=== PATIENT | male | born 1935 | race Caucasian/White ===

== ENCOUNTER 2021-09-20 23:23 | Inpatient (IN) | payer OTHER ==
[~2021-09-20] VITALS: Ht 175.3 cm; Wt 111.2 kg
[2021-09-21] MEDS ORDERED: VANCOMYCIN 1GM/250ML 250 ML IV ONE (00:15)
[2021-09-21] MEDS ORDERED: SODIUM CHLORIDE 0.9% 500 ML IV ONE (00:15)
[2021-09-21] MEDS ORDERED: PIPERACILLIN-TAZO 4.5GM 100 ML IV ONE (00:15)
[2021-09-21] MEDS ORDERED: ACETAMINOPHEN 500 MG TAB PO ONE (00:15)
[2021-09-21] MEDS ORDERED: VANCOMYCIN 1GM/250ML 500 ML IV ONE (00:16)
[2021-09-21 00:45] LABS: Basophils # (auto) 0.1 10 ^3/uL (0-0.2); Basophils % (auto) 1.5 % (0.0-2.0); Eosinophils # (auto) 0 10 ^3/uL (0-0.8); Eosinophils % (auto) 0.1 % (0.0-7.0); Hematocrit 58.6 % (41.0-53.0); Hemoglobin 19.1 g/dL (13.5-17.5); Lymphocytes # (auto) 1.4 10 ^3/uL (0.4-5.4); Lymphocytes % (auto) 17.1 % (10.0-50.0); Mean Corpuscular Hemoglobin 30.4 pg (28.0-32.0); Mean Corpuscular Hgb Conc. 32.7 g/dL (32.0-36.0); Monocytes % (auto) 13.1 % (0.0-12.0); Neutrophils # (auto) 5.4 10 ^3/uL (1.6-8.6); Neutrophils % (auto) 68.2 % (37.0-80.0); Nucleated Red Blood Cells % 0.1 %; Red Cell Distribution Width 14.9 % (11.8-14.3)
[2021-09-21 00:48] LABS: INR 1.79 (0.9-1.15)
[2021-09-21 00:51] LABS: Albumin 2.3 g/dL (3.4-5.0); BUN/Creatinine Ratio 22.2; Calcium 7.7 mg/dL (8.5-10.1); Magnesium 2.6 mg/dL (1.6-2.6); Potassium 4.4 mmol/L (3.5-5.1)
[2021-09-21 00:53] LABS: Bilirubin, Total 1.2 mg/dL (0.2-1.0); Lactic Acid w/Reflex 3.8 mmol/L (0.4-2.0); Total Protein 6.7 g/dL (6.4-8.2)
[2021-09-21] MEDS ORDERED: DexAMETHasone SOD PHOS 10MG/1ML VIAL INJ IV ONE (01:45)
[2021-09-21] MEDS ORDERED: NOREPINEPHRINE 8 MG/250ML KIT 250 ML IV SCH (01:45)
[2021-09-21] MEDS ORDERED: DOCUSATE SOD 100 MG CAP PO PRN (05:15)
[2021-09-21] MEDS ORDERED: dilTIAZem 25 MG/5 ML VIAL IV ONE (05:15)
[2021-09-21] MEDS ORDERED: ACETAMINOPHEN 325 MG TAB PO PRN (05:15)
[2021-09-21] MEDS ORDERED: HYDROcodone-ACET 5/325MG TAB PO PRN (05:15)
[2021-09-21] MEDS ORDERED: MORPHINE SULFATE INJECTION 2 MG/ML SYRG IV PRN (05:45)
[2021-09-21] MEDS: ALBUMIN 25% 50 ML IV SCH ×3 (05:56→21:53)
[2021-09-21] MEDS: SODIUM CHLOR 0.9% PF (SALINE LOCK) 10ML VIAL/SYR IV SCH ×3 (06:13→22:07)
[2021-09-21] MEDS: BUDESONIDE (INHALATION) 180 MCG IH IN SCH ×2 (07:20→19:18)
[2021-09-21] MEDS: cefTRIAXone 1GM/50ML D5W 50 ML IV SCH (09:00)
[2021-09-21 09:06] LABS: Magnesium 3.5 mg/dL (1.6-2.6)
[2021-09-21] MEDS: ALBUTEROL SULF HFA 90MCG INH 200DOSE IN PRN ×2 (09:29→19:18)
[2021-09-21] MEDS: MULTIPLE VITAMIN TAB PO SCH (10:05)
[2021-09-21] MEDS: FAMOTIDINE (10MG/ML) 2ML VL IV SCH (10:05)
[2021-09-21] MEDS: DexAMETHasone SOD PHOS 10MG/1ML VIAL INJ IV SCH (10:05)
[2021-09-21] MEDS: ZINC SULFATE 220mg CAP or TAB PO SCH (10:05)
[2021-09-21] MEDS: ASCORBIC ACID 500 MG TAB PO SCH ×2 (10:05→22:00)
[2021-09-21] MEDS: ASPirin 81 mg TAB PO SCH (10:05)
[2021-09-21] MEDS: CHOLECALCIFEROL (VITD3) 2,000 UNIT CAP/TAB PO SCH (10:06)
[2021-09-21] MEDS: HEPARIN SODIUM (PORCINE) 5000 UNITS/ML 1ML VIAL SC SCH ×2 (10:07→22:19)
[2021-09-21] MEDS: AZITHROMYCIN 500MG/ 250ML 250 ML IV SCH (10:57)
[2021-09-21] MEDS ORDERED: REMDESIVIR PER PHARMACY 0 ML IV SCH (11:45)
[2021-09-21] MEDS ORDERED: REMDESIVIR IV ONE (15:00)
[2021-09-21] MEDS ORDERED: SODIUM CHL 0.9% IV ONE (15:00)
[2021-09-21 19:37] VITALS: BP 116/60
[2021-09-21] MEDS ORDERED: DEXTROSE (50%) 50ML SYRG IV PRN (21:45)
[2021-09-21 22:00] VITALS: BP 106/68
[2021-09-22] MEDS ORDERED: CHOL20007 PO (00:17)
[2021-09-22] MEDS ORDERED: DIGO0.12 PO (00:17)
[2021-09-22] MEDS ORDERED: WARF1TAB36 PO (00:17)
[2021-09-22] MEDS ORDERED: BISO5TAB44 PO (00:17)
[2021-09-22] MEDS ORDERED: ATOR40TA52 PO (00:17)
[2021-09-22] MEDS ORDERED: ALEN70TA74 PO (00:17)
[2021-09-22] MEDS ORDERED: FURO40TA4 PO (00:17)
[2021-09-22 05:00] VITALS: BP 106/58
[2021-09-22] MEDS: ACCU-CHEK COMFORT CURVE STRIP VI SCH ×4 (05:48→16:55)
[2021-09-22] MEDS: SODIUM CHLOR 0.9% PF (SALINE LOCK) 10ML VIAL/SYR IV SCH ×3 (05:49→22:29)
[2021-09-22] MEDS: InsuLIN REG 1unit/0.01ml Soln (100units/ml) SC SCH ×3 (05:49→16:55)
[2021-09-22] MEDS: BUDESONIDE (INHALATION) 180 MCG IH IN SCH ×2 (06:00→21:03)
[2021-09-22] MEDS: ALBUTEROL SULF HFA 90MCG INH 200DOSE IN PRN ×2 (06:08→21:03)
[2021-09-22 06:54] LABS: Basophils # (auto) 0 10 ^3/uL (0-0.2); Eosinophils # (auto) 0 10 ^3/uL (0-0.8); Hemoglobin 18.2 g/dL (13.5-17.5)
[2021-09-22 06:59] LABS: Lymphocytes # (auto) 0.3 10 ^3/uL (0.4-5.4); Lymphocytes % (auto) 1.8 % (10.0-50.0); Mean Corpuscular Hemoglobin 29.6 pg (28.0-32.0); Mean Corpuscular Volume 92.4 fL (80.0-100.0); Monocytes # (auto) 1.3 10 ^3/uL (0-1.3); Monocytes % (auto) 9.1 % (0.0-12.0); Neutrophils # (auto) 12.4 10 ^3/uL (1.6-8.6); Neutrophils % (auto) 89.1 % (37.0-80.0); Nucleated Red Blood Cells % 0.1 %; Red Blood Cells 6.14 10^6/uL (4.5-5.90); Red Cell Distribution Width 14.8 % (11.8-14.3); White Blood Cell 13.9 10^3/uL (4.4-10.8)
[2021-09-22 07:00] LABS: INR 2.2 (0.9-1.15)
[2021-09-22 07:04] LABS: Potassium 4.7 mmol/L (3.5-5.1)
[2021-09-22 07:11] LABS: Hematocrit 56.8 % (41.0-53.0)
[2021-09-22 07:18] LABS: Albumin 2.8 g/dL (3.4-5.0); BUN/Creatinine Ratio 20.8; Bilirubin, Total 0.7 mg/dL (0.2-1.0); CRP High Sensitivity 6.67 mg/dL (< 0.3); Calcium 8.3 mg/dL (8.5-10.1); Magnesium 2.7 mg/dL (1.6-2.6); Total Protein 6.9 g/dL (6.4-8.2)
[2021-09-22 08:00] VITALS: BP_SYST 126; BP_SYST 141; BP_DIAS 79; BP_DIAS 88
[2021-09-22] MEDS: cefTRIAXone 1GM/50ML D5W 50 ML IV SCH (09:17)
[2021-09-22] MEDS: FAMOTIDINE (10MG/ML) 2ML VL IV SCH (09:18)
[2021-09-22] MEDS: ZINC SULFATE 220mg CAP or TAB PO SCH (09:18)
[2021-09-22] MEDS: DexAMETHasone SOD PHOS 10MG/1ML VIAL INJ IV SCH (09:18)
[2021-09-22] MEDS: ASPirin 81 mg TAB PO SCH (09:18)
[2021-09-22] MEDS: MULTIPLE VITAMIN TAB PO SCH (09:18)
[2021-09-22] MEDS: ASCORBIC ACID 500 MG TAB PO SCH ×2 (09:19→22:28)
[2021-09-22] MEDS: CHOLECALCIFEROL (VITD3) 2,000 UNIT CAP/TAB PO SCH (09:19)
[2021-09-22] MEDS: HEPARIN SODIUM (PORCINE) 5000 UNITS/ML 1ML VIAL SC SCH (09:20)
[2021-09-22] MEDS: AZITHROMYCIN 500MG/ 250ML 250 ML IV SCH (10:00)
[2021-09-22 12:00] VITALS: BP 115/74
[2021-09-22] MEDS ORDERED: FUROSEMIDE 20 MG/2 ML VIAL IV ONE (12:45)
[2021-09-22 12:48] LABS: Urine Amorphous Crystal FEW /hpf (None Seen); Urine Bacteria FEW /hpf (None Seen); Urine Blood 3+ /uL (Negative); Urine Mucus FEW (None Seen); Urine Specific Gravity 1.021 (1.001-1.035); Urine WBC 81 /hpf (0 - 3)
[2021-09-22 12:55] LABS: Creatinine, Urine 103 mg/dL (30.0-125.0); Sodium Urine 18 mmol/L (40-220)
[2021-09-22 13:16] LABS: Protein, Urine 232.9 mg/dL (0.0-11.9)
[2021-09-22] MEDS: SOD CHL 0.45% 1,000 ML IV SCH (13:46)
[2021-09-22] MEDS: DOXYCYCLINE 100MG/250ML 250 ML IV SCH (14:02)
[2021-09-22] MEDS ORDERED: REMDESIVIR IV SCH (15:00)
[2021-09-22] MEDS ORDERED: SODIUM CHL 0.9% IV SCH (15:00)
[2021-09-22 16:00] VITALS: BP 129/76
[2021-09-22] MEDS: REMDESIVIR 100mg 100 MG in SODIUM CHL 0.9% 230 ML IV SCH (16:00)
[2021-09-22] MEDS ORDERED: WARFARIN SODIUM 2.5 MG TAB PO ONE (19:00)
[2021-09-22] MEDS ORDERED: DIGOXIN 0.125 MG TAB PO ONE (21:30)
[2021-09-22 22:00] VITALS: BP 112/71
[2021-09-23] MEDS: DOXYCYCLINE 100MG/250ML 250 ML IV SCH ×2 (02:00→14:07)
[2021-09-23 05:00] VITALS: BP 105/66
[2021-09-23] MEDS: ACCU-CHEK COMFORT CURVE STRIP VI SCH ×5 (05:37→23:51)
[2021-09-23] MEDS: SOD CHL 0.45% 1,000 ML IV SCH ×3 (05:38→18:26)
[2021-09-23 05:39] LABS: Basophils # (auto) 0 10 ^3/uL (0-0.2); Basophils % (auto) 0.3 % (0.0-2.0); Eosinophils # (auto) 0 10 ^3/uL (0-0.8); Hematocrit 53.8 % (41.0-53.0); Lymphocytes # (auto) 0.2 10 ^3/uL (0.4-5.4); Lymphocytes % (auto) 1.6 % (10.0-50.0); Mean Corpuscular Hemoglobin 30.6 pg (28.0-32.0); Mean Corpuscular Hgb Conc. 33.5 g/dL (32.0-36.0); Mean Corpuscular Volume 91.3 fL (80.0-100.0); Monocytes % (auto) 7.4 % (0.0-12.0); Neutrophils # (auto) 12.4 10 ^3/uL (1.6-8.6); Neutrophils % (auto) 90.7 % (37.0-80.0); Red Blood Cells 5.89 10^6/uL (4.5-5.90); White Blood Cell 13.7 10^3/uL (4.4-10.8)
[2021-09-23] MEDS: ALBUTEROL SULF HFA 90MCG INH 200DOSE IN PRN ×2 (05:42→19:00)
[2021-09-23] MEDS: BUDESONIDE (INHALATION) 180 MCG IH IN SCH ×2 (05:42→19:00)
[2021-09-23] MEDS: SODIUM CHLOR 0.9% PF (SALINE LOCK) 10ML VIAL/SYR IV SCH ×3 (05:43→22:31)
[2021-09-23] MEDS: InsuLIN REG 1unit/0.01ml Soln (100units/ml) SC SCH ×5 (05:50→23:56)
[2021-09-23 05:55] LABS: Albumin 2.6 g/dL (3.4-5.0); Potassium 4.3 mmol/L (3.5-5.1)
[2021-09-23 05:58] LABS: INR 2.26 (0.9-1.15); Lactic Acid w/Reflex 2.3 mmol/L (0.4-2.0); Partial Thromboplastin Time 36.4 sec (23.6-33.0)
[2021-09-23 06:03] LABS: BUN/Creatinine Ratio 23.9; Bilirubin, Total 0.8 mg/dL (0.2-1.0); CRP High Sensitivity 8.98 mg/dL (< 0.3); Total Protein 6.4 g/dL (6.4-8.2)
[2021-09-23 08:00] VITALS: BP 115/74
[2021-09-23 08:59] VITALS: BP 100/54
[2021-09-23] MEDS: FAMOTIDINE (10MG/ML) 2ML VL IV SCH (09:20)
[2021-09-23] MEDS: DexAMETHasone SOD PHOS 10MG/1ML VIAL INJ IV SCH (09:20)
[2021-09-23] MEDS: ASPirin 81 mg TAB PO SCH (09:20)
[2021-09-23] MEDS: CHOLECALCIFEROL (VITD3) 2,000 UNIT CAP/TAB PO SCH (09:21)
[2021-09-23] MEDS: ZINC SULFATE 220mg CAP or TAB PO SCH (09:21)
[2021-09-23] MEDS: ASCORBIC ACID 500 MG TAB PO SCH ×2 (09:21→22:33)
[2021-09-23] MEDS: DIGOXIN 0.125 MG TAB PO SCH (09:21)
[2021-09-23] MEDS: MULTIPLE VITAMIN TAB PO SCH (09:21)
[2021-09-23] MEDS ORDERED: AMIODARONE 450mg/250ml AE 250 ML IV SCH (12:45)
[2021-09-23] MEDS ORDERED: AMIODARONE HCL 150 MG in D5W 5% 100 ML IV ONE (12:45)
[2021-09-23 13:00] VITALS: BP 108/65
[2021-09-23] MEDS: REMDESIVIR 100mg 100 MG in SODIUM CHL 0.9% 230 ML IV SCH (16:02)
[2021-09-23 17:00] VITALS: BP 117/77
[2021-09-23] MEDS: AMIODARONE 450mg/250ml AE 250 ML IV SCH (21:51)
[2021-09-23 22:00] VITALS: BP 122/77
[2021-09-24] MEDS: DOXYCYCLINE 100MG/250ML 250 ML IV SCH ×2 (02:15→14:02)
[2021-09-24] MEDS: SOD CHL 0.45% 1,000 ML IV SCH ×2 (04:00→15:22)
[2021-09-24 05:00] VITALS: BP 124/85
[2021-09-24] MEDS: InsuLIN REG 1unit/0.01ml Soln (100units/ml) SC SCH ×4 (06:00→23:25)
[2021-09-24 06:22] LABS: Basophils # (auto) 0.1 10 ^3/uL (0-0.2); Eosinophils # (auto) 0 10 ^3/uL (0-0.8); Lymphocytes # (auto) 0.2 10 ^3/uL (0.4-5.4)
[2021-09-24 06:26] LABS: Basophils % (auto) 0.3 % (0.0-2.0); Hematocrit 55.9 % (41.0-53.0); Hemoglobin 18.4 g/dL (13.5-17.5); Lymphocytes % (auto) 1.1 % (10.0-50.0); Mean Corpuscular Hemoglobin 30.3 pg (28.0-32.0); Mean Corpuscular Hgb Conc. 32.9 g/dL (32.0-36.0); Mean Corpuscular Volume 92.1 fL (80.0-100.0); Neutrophils % (auto) 92.6 % (37.0-80.0); Red Blood Cells 6.08 10^6/uL (4.5-5.90); White Blood Cell 16.2 10^3/uL (4.4-10.8)
[2021-09-24 06:33] LABS: INR 3.5 (0.9-1.15)
[2021-09-24] MEDS: ACCU-CHEK COMFORT CURVE STRIP VI SCH ×4 (06:43→23:23)
[2021-09-24] MEDS: SODIUM CHLOR 0.9% PF (SALINE LOCK) 10ML VIAL/SYR IV SCH ×3 (06:44→21:37)
[2021-09-24 06:45] LABS: Albumin 2.7 g/dL (3.4-5.0); Calcium 8.4 mg/dL (8.5-10.1); Magnesium 3.6 mg/dL (1.6-2.6); Potassium 4.3 mmol/L (3.5-5.1)
[2021-09-24 06:50] LABS: BUN/Creatinine Ratio 24.2; Bilirubin, Total 1.2 mg/dL (0.2-1.0); Total Protein 6.8 g/dL (6.4-8.2)
[2021-09-24] MEDS: BUDESONIDE (INHALATION) 180 MCG IH IN SCH ×2 (08:13→19:46)
[2021-09-24] MEDS: ALBUTEROL SULF HFA 90MCG INH 200DOSE IN PRN ×2 (08:13→19:46)
[2021-09-24] MEDS: ASPirin 81 mg TAB PO SCH (09:02)
[2021-09-24] MEDS: FAMOTIDINE (10MG/ML) 2ML VL IV SCH (09:02)
[2021-09-24] MEDS: DexAMETHasone SOD PHOS 10MG/1ML VIAL INJ IV SCH (09:02)
[2021-09-24] MEDS: ZINC SULFATE 220mg CAP or TAB PO SCH (09:03)
[2021-09-24] MEDS: DIGOXIN 0.125 MG TAB PO SCH (09:03)
[2021-09-24] MEDS: MULTIPLE VITAMIN TAB PO SCH (09:03)
[2021-09-24] MEDS: CHOLECALCIFEROL (VITD3) 2,000 UNIT CAP/TAB PO SCH (09:04)
[2021-09-24] MEDS: ASCORBIC ACID 500 MG TAB PO SCH ×2 (09:04→21:37)
[2021-09-24] MEDS: LORazepam 0.5 MG TAB PO PRN ×2 (09:05→23:23)
[2021-09-24] MEDS: AMIODARONE 450mg/250ml AE 250 ML IV SCH (11:56)
[2021-09-24 13:00] VITALS: BP 112/68
[2021-09-24] MEDS ORDERED: AMIODARONE HCL 200 MG TAB PO ONE (14:30)
[2021-09-24] MEDS ORDERED: FUROSEMIDE 20 MG/2 ML VIAL IV ONE (14:30)
[2021-09-24] MEDS: REMDESIVIR 100mg 100 MG in SODIUM CHL 0.9% 230 ML IV SCH (15:22)
[2021-09-24 16:58] VITALS: BP 116/81
[2021-09-24] MEDS: Ensure HIGH Protein Chocolate 8oz Bottle PO SCH (18:00)
[2021-09-24] MEDS: AMIODARONE HCL 200 MG TAB PO SCH (21:38)
[2021-09-24 22:00] VITALS: BP 114/67
[2021-09-25] MEDS: DOXYCYCLINE 100MG/250ML 250 ML IV SCH ×2 (02:12→14:26)
[2021-09-25 05:00] VITALS: BP 109/77
[2021-09-25] MEDS: SODIUM CHLOR 0.9% PF (SALINE LOCK) 10ML VIAL/SYR IV SCH ×3 (05:19→22:26)
[2021-09-25] MEDS: ACCU-CHEK COMFORT CURVE STRIP VI SCH ×3 (05:19→17:24)
[2021-09-25] MEDS: InsuLIN REG 1unit/0.01ml Soln (100units/ml) SC SCH ×3 (05:21→17:32)
[2021-09-25] MEDS: BUDESONIDE (INHALATION) 180 MCG IH IN SCH ×2 (07:33→21:54)
[2021-09-25] MEDS: ALBUTEROL SULF HFA 90MCG INH 200DOSE IN PRN ×2 (07:33→21:54)
[2021-09-25] MEDS: Ensure HIGH Protein Chocolate 8oz Bottle PO SCH ×3 (08:00→17:24)
[2021-09-25 08:41] VITALS: BP 125/76
[2021-09-25] MEDS: ZINC SULFATE 220mg CAP or TAB PO SCH (10:09)
[2021-09-25] MEDS: DexAMETHasone SOD PHOS 10MG/1ML VIAL INJ IV SCH (10:09)
[2021-09-25] MEDS: FAMOTIDINE (10MG/ML) 2ML VL IV SCH (10:09)
[2021-09-25] MEDS: ASPirin 81 mg TAB PO SCH (10:09)
[2021-09-25] MEDS: FUROSEMIDE 20 MG/2 ML VIAL IV SCH (10:09)
[2021-09-25] MEDS: AMIODARONE HCL 200 MG TAB PO SCH ×2 (10:10→22:25)
[2021-09-25] MEDS: MULTIPLE VITAMIN TAB PO SCH (10:10)
[2021-09-25] MEDS: ASCORBIC ACID 500 MG TAB PO SCH ×2 (10:10→22:26)
[2021-09-25] MEDS: DIGOXIN 0.125 MG TAB PO SCH (10:10)
[2021-09-25] MEDS: CHOLECALCIFEROL (VITD3) 2,000 UNIT CAP/TAB PO SCH (10:11)
[2021-09-25 11:07] LABS: Potassium 4.7 mmol/L (3.5-5.1)
[2021-09-25 11:08] LABS: Eosinophils # (auto) 0 10 ^3/uL (0-0.8); Lymphocytes # (auto) 0.2 10 ^3/uL (0.4-5.4); Mean Corpuscular Volume 91.2 fL (80.0-100.0); Monocytes # (auto) 0.9 10 ^3/uL (0-1.3)
[2021-09-25 11:11] LABS: Basophils # (auto) 0.2 10 ^3/uL (0-0.2); Basophils % (auto) 1.1 % (0.0-2.0); Hematocrit 53.6 % (41.0-53.0); Hemoglobin 17.7 g/dL (13.5-17.5); Lymphocytes % (auto) 1.3 % (10.0-50.0); Mean Corpuscular Hemoglobin 30.2 pg (28.0-32.0); Mean Corpuscular Hgb Conc. 33.1 g/dL (32.0-36.0); Monocytes % (auto) 5.6 % (0.0-12.0); Neutrophils # (auto) 14.8 10 ^3/uL (1.6-8.6); Nucleated Red Blood Cells % 0.1 %; Red Blood Cells 5.87 10^6/uL (4.5-5.90); Red Cell Distribution Width 15.1 % (11.8-14.3); White Blood Cell 16.1 10^3/uL (4.4-10.8)
[2021-09-25 11:20] LABS: Albumin 2.3 g/dL (3.4-5.0); BUN/Creatinine Ratio 31.2; Bilirubin, Total 1.4 mg/dL (0.2-1.0); CRP High Sensitivity 5.19 mg/dL (< 0.3); Calcium 8.3 mg/dL (8.5-10.1); Magnesium 3.3 mg/dL (1.6-2.6); Total Protein 6.2 g/dL (6.4-8.2)
[2021-09-25 11:40] LABS: INR 3.98 (0.9-1.15)
[2021-09-25] MEDS: SOD CHL 0.45% 1,000 ML IV SCH (11:54)
[2021-09-25 13:00] VITALS: BP 128/87
[2021-09-25] MEDS: DOPamine 1600MCG/ML D5W 250 ML IV SCH (14:05)
[2021-09-25] MEDS: REMDESIVIR 100mg 100 MG in SODIUM CHL 0.9% 230 ML IV SCH (14:26)
[2021-09-25 17:20] VITALS: BP 115/85
[2021-09-25 22:17] VITALS: BP 114/85
[2021-09-26] MEDS: InsuLIN REG 1unit/0.01ml Soln (100units/ml) SC SCH ×4 (00:49→17:32)
[2021-09-26] MEDS: ACCU-CHEK COMFORT CURVE STRIP VI SCH ×4 (00:50→17:32)
[2021-09-26] MEDS: DOXYCYCLINE 100MG/250ML 250 ML IV SCH ×2 (02:36→13:13)
[2021-09-26 05:00] VITALS: BP 120/64
[2021-09-26] MEDS: SOD CHL 0.45% 1,000 ML IV SCH (05:04)
[2021-09-26] MEDS: SODIUM CHLOR 0.9% PF (SALINE LOCK) 10ML VIAL/SYR IV SCH ×3 (06:07→22:35)
[2021-09-26] MEDS: BUDESONIDE (INHALATION) 180 MCG IH IN SCH ×2 (06:56→21:52)
[2021-09-26] MEDS: ALBUTEROL SULF HFA 90MCG INH 200DOSE IN PRN ×2 (06:56→22:51)
[2021-09-26] MEDS: Ensure HIGH Protein Chocolate 8oz Bottle PO SCH ×3 (08:00→18:00)
[2021-09-26 09:00] VITALS: BP 108/62
[2021-09-26] MEDS: DexAMETHasone SOD PHOS 10MG/1ML VIAL INJ IV SCH (09:08)
[2021-09-26] MEDS: ASPirin 81 mg TAB PO SCH (09:09)
[2021-09-26] MEDS: FUROSEMIDE 20 MG/2 ML VIAL IV SCH (09:09)
[2021-09-26] MEDS: FAMOTIDINE (10MG/ML) 2ML VL IV SCH (09:09)
[2021-09-26] MEDS: ZINC SULFATE 220mg CAP or TAB PO SCH (09:09)
[2021-09-26] MEDS: ASCORBIC ACID 500 MG TAB PO SCH ×2 (09:10→22:34)
[2021-09-26] MEDS: MULTIPLE VITAMIN TAB PO SCH (09:10)
[2021-09-26] MEDS: AMIODARONE HCL 200 MG TAB PO SCH ×2 (09:10→22:34)
[2021-09-26] MEDS: CHOLECALCIFEROL (VITD3) 2,000 UNIT CAP/TAB PO SCH (09:10)
[2021-09-26] MEDS: DIGOXIN 0.125 MG TAB PO SCH (09:12)
[2021-09-26 10:10] LABS: Potassium 4.8 mmol/L (3.5-5.1)
[2021-09-26 10:43] LABS: Albumin 2.3 g/dL (3.4-5.0); Bilirubin, Direct 0.4 mg/dL (0-0.2); Bilirubin, Total 1.2 mg/dL (0.2-1.0); Total Protein 6.3 g/dL (6.4-8.2)
[2021-09-26 10:55] LABS: BUN/Creatinine Ratio 34.2; CRP High Sensitivity 3.73 mg/dL (< 0.3); Calcium 8.7 mg/dL (8.5-10.1); Magnesium 2.2 mg/dL (1.6-2.6)
[2021-09-26 11:06] LABS: INR 3.52 (0.9-1.15)
[2021-09-26 13:00] VITALS: BP 109/76
[2021-09-26] MEDS: DOPamine 1600MCG/ML D5W 250 ML IV SCH (13:00)
[2021-09-26 17:25] VITALS: BP 111/84
[2021-09-26 20:10] VITALS: BP 110/70
[2021-09-26 22:00] VITALS: BP 110/71
[2021-09-27] MEDS: ACCU-CHEK COMFORT CURVE STRIP VI SCH ×4 (00:06→17:13)
[2021-09-27] MEDS: InsuLIN REG 1unit/0.01ml Soln (100units/ml) SC SCH ×4 (00:10→17:13)
[2021-09-27 00:39] LABS: Lactic Acid w/Reflex 2.1 mmol/L (0.4-2.0)
[2021-09-27] MEDS: SOD CHL 0.45% 1,000 ML IV SCH ×2 (01:32→22:36)
[2021-09-27 01:50] LABS: Basophils # (auto) 0 10 ^3/uL (0-0.2); Basophils % (auto) 0.2 % (0.0-2.0); Eosinophils # (auto) 0 10 ^3/uL (0-0.8); Eosinophils % (auto) 0.1 % (0.0-7.0); Hemoglobin 19.3 g/dL (13.5-17.5); Lymphocytes # (auto) 0.2 10 ^3/uL (0.4-5.4); Lymphocytes % (auto) 1.3 % (10.0-50.0); Mean Corpuscular Hgb Conc. 32.9 g/dL (32.0-36.0); Mean Corpuscular Volume 91.3 fL (80.0-100.0); Monocytes # (auto) 1.1 10 ^3/uL (0-1.3); Monocytes % (auto) 6.6 % (0.0-12.0); Neutrophils # (auto) 15.7 10 ^3/uL (1.6-8.6); Neutrophils % (auto) 91.8 % (37.0-80.0); Nucleated Red Blood Cells % 0.6 %; Red Blood Cells 6.44 10^6/uL (4.5-5.90); Red Cell Distribution Width 14.9 % (11.8-14.3); White Blood Cell 17.1 10^3/uL (4.4-10.8)
[2021-09-27 01:51] LABS: Hematocrit 58.9 % (41.0-53.0)
[2021-09-27] MEDS: DOXYCYCLINE 100MG/250ML 250 ML IV SCH (02:20)
[2021-09-27 05:00] VITALS: BP 123/75
[2021-09-27] MEDS: SODIUM CHLOR 0.9% PF (SALINE LOCK) 10ML VIAL/SYR IV SCH ×3 (06:13→22:36)
[2021-09-27] MEDS: Ensure HIGH Protein Chocolate 8oz Bottle PO SCH ×3 (08:00→18:00)
[2021-09-27] MEDS: DexAMETHasone SOD PHOS 10MG/1ML VIAL INJ IV SCH (09:00)
[2021-09-27] MEDS: FUROSEMIDE 20 MG/2 ML VIAL IV SCH (09:00)
[2021-09-27] MEDS: DIGOXIN 0.125 MG TAB PO SCH (09:01)
[2021-09-27] MEDS: ZINC SULFATE 220mg CAP or TAB PO SCH (09:01)
[2021-09-27] MEDS: ASPirin 81 mg TAB PO SCH (09:01)
[2021-09-27] MEDS: AMIODARONE HCL 200 MG TAB PO SCH ×2 (09:01→22:35)
[2021-09-27] MEDS: FAMOTIDINE (10MG/ML) 2ML VL IV SCH (09:01)
[2021-09-27] MEDS: CHOLECALCIFEROL (VITD3) 2,000 UNIT CAP/TAB PO SCH (09:02)
[2021-09-27] MEDS: MULTIPLE VITAMIN TAB PO SCH (09:02)
[2021-09-27] MEDS: ASCORBIC ACID 500 MG TAB PO SCH ×2 (09:02→22:35)
[2021-09-27] MEDS: ALBUTEROL SULF HFA 90MCG INH 200DOSE IN PRN ×2 (09:34→20:35)
[2021-09-27] MEDS: BUDESONIDE (INHALATION) 180 MCG IH IN SCH ×2 (09:34→19:50)
[2021-09-27] MEDS ORDERED: MEROPENEM 1GM IVPB 100 ML IV ONE (12:45)
[2021-09-27] MEDS: DOPamine 1600MCG/ML D5W 250 ML IV SCH (13:00)
[2021-09-27] MEDS: ONDANSETRON HCL 4 MG/2 ML VIAL IV PRN (14:09)
[2021-09-27 17:00] VITALS: BP 92/58
[2021-09-27 22:00] VITALS: BP 102/71
[2021-09-27] MEDS: MEROPENEM 1GM IVPB 100 ML IV SCH (22:36)
[2021-09-27 23:33] LABS: Basophils # (auto) 0.1 10 ^3/uL (0-0.2); Basophils % (auto) 0.7 % (0.0-2.0); Eosinophils # (auto) 0 10 ^3/uL (0-0.8); Eosinophils % (auto) 0.1 % (0.0-7.0); Hematocrit 55.9 % (41.0-53.0); Hemoglobin 18.2 g/dL (13.5-17.5); Lymphocytes # (auto) 0.1 10 ^3/uL (0.4-5.4); Lymphocytes % (auto) 0.7 % (10.0-50.0); Mean Corpuscular Hgb Conc. 32.6 g/dL (32.0-36.0); Mean Corpuscular Volume 91.9 fL (80.0-100.0); Monocytes # (auto) 0.8 10 ^3/uL (0-1.3); Monocytes % (auto) 5.1 % (0.0-12.0); Neutrophils # (auto) 14.5 10 ^3/uL (1.6-8.6); Neutrophils % (auto) 93.4 % (37.0-80.0); Nucleated Red Blood Cells % 0.1 %; Red Blood Cells 6.08 10^6/uL (4.5-5.90); White Blood Cell 15.5 10^3/uL (4.4-10.8)
[2021-09-27 23:45] LABS: Albumin 2.1 g/dL (3.4-5.0); Calcium 8.6 mg/dL (8.5-10.1); Potassium 5.5 mmol/L (3.5-5.1)
[2021-09-28] MEDS: InsuLIN REG 1unit/0.01ml Soln (100units/ml) SC SCH ×4 (00:59→16:57)
[2021-09-28] MEDS: ACCU-CHEK COMFORT CURVE STRIP VI SCH ×4 (06:16→16:56)
[2021-09-28] MEDS: SODIUM CHLOR 0.9% PF (SALINE LOCK) 10ML VIAL/SYR IV SCH ×3 (06:17→22:53)
[2021-09-28] MEDS ORDERED: CALCIUM GLUC 1,000mg/50ml-NS 50 ML IV ONE (06:30)
[2021-09-28] MEDS ORDERED: DEXTROSE (50%) 50ML SYRG IV ONE (06:30)
[2021-09-28] MEDS ORDERED: InsuLIN REG 1unit/0.01ml Soln (100units/ml) IV ONE (06:30)
[2021-09-28 06:55] LABS: Basophils # (auto) 0.1 10 ^3/uL (0-0.2); Lymphocytes # (auto) 0.2 10 ^3/uL (0.4-5.4); Red Blood Cells 6.51 10^6/uL (4.5-5.90)
[2021-09-28 06:59] LABS: Basophils % (auto) 0.5 % (0.0-2.0); Eosinophils # (auto) 0.1 10 ^3/uL (0-0.8); Eosinophils % (auto) 0.6 % (0.0-7.0); Hemoglobin 19.5 g/dL (13.5-17.5); Lymphocytes % (auto) 1.2 % (10.0-50.0); Mean Corpuscular Hgb Conc. 32.9 g/dL (32.0-36.0); Mean Corpuscular Volume 91.2 fL (80.0-100.0); Monocytes # (auto) 1.1 10 ^3/uL (0-1.3); Monocytes % (auto) 6.3 % (0.0-12.0); Neutrophils # (auto) 15.9 10 ^3/uL (1.6-8.6); Neutrophils % (auto) 91.4 % (37.0-80.0); Nucleated Red Blood Cells % 0.5 %; Red Cell Distribution Width 15.2 % (11.8-14.3); White Blood Cell 17.4 10^3/uL (4.4-10.8)
[2021-09-28 07:10] LABS: INR 2.67 (0.9-1.15)
[2021-09-28 07:16] LABS: Hematocrit 59.4 % (41.0-53.0)
[2021-09-28 07:17] LABS: Albumin 2.2 g/dL (3.4-5.0); Magnesium 2.5 mg/dL (1.6-2.6)
[2021-09-28] MEDS: SODIUM ZIRCONIUM CYCL 10 GM PAK PO SCH ×3 (07:19→22:53)
[2021-09-28 07:27] LABS: Bilirubin, Total 1.1 mg/dL (0.2-1.0); CRP High Sensitivity 1.3 mg/dL (< 0.3); Total Protein 6.2 g/dL (6.4-8.2)
[2021-09-28] MEDS: Ensure HIGH Protein Chocolate 8oz Bottle PO SCH ×3 (08:00→16:55)
[2021-09-28 08:04] LABS: BUN/Creatinine Ratio 40.3
[2021-09-28 08:51] LABS: Potassium 5.8 mmol/L (3.5-5.1)
[2021-09-28 09:00] VITALS: BP 108/76
[2021-09-28] MEDS: DexAMETHasone SOD PHOS 10MG/1ML VIAL INJ IV SCH (09:51)
[2021-09-28] MEDS: FUROSEMIDE 20 MG/2 ML VIAL IV SCH (09:56)
[2021-09-28] MEDS: FAMOTIDINE (10MG/ML) 2ML VL IV SCH (09:56)
[2021-09-28] MEDS: MEROPENEM 1GM IVPB 100 ML IV SCH ×2 (09:56→22:52)
[2021-09-28] MEDS: ASPirin 81 mg TAB PO SCH (09:56)
[2021-09-28] MEDS: DIGOXIN 0.125 MG TAB PO SCH (09:57)
[2021-09-28] MEDS: AMIODARONE HCL 200 MG TAB PO SCH (09:57)
[2021-09-28] MEDS: ZINC SULFATE 220mg CAP or TAB PO SCH (09:57)
[2021-09-28] MEDS: MULTIPLE VITAMIN TAB PO SCH (09:58)
[2021-09-28] MEDS: ASCORBIC ACID 500 MG TAB PO SCH (09:58)
[2021-09-28] MEDS: CHOLECALCIFEROL (VITD3) 2,000 UNIT CAP/TAB PO SCH (09:58)
[2021-09-28 12:31] VITALS: BP 116/77
[2021-09-28] MEDS: DOPamine 1600MCG/ML D5W 250 ML IV SCH (13:00)
[2021-09-28] MEDS ORDERED: FURO40TA4 PO (14:51)
[2021-09-28] MEDS ORDERED: BISO5TAB44 PO (14:51)
[2021-09-28] MEDS: BUDESONIDE (INHALATION) 180 MCG IH IN SCH ×2 (15:48→21:41)
[2021-09-28] MEDS: ALBUTEROL SULF HFA 90MCG INH 200DOSE IN PRN ×2 (15:48→22:32)
[2021-09-28 15:51] LABS: Albumin 2.1 g/dL (3.4-5.0); Calcium 8.9 mg/dL (8.5-10.1); Potassium 5.1 mmol/L (3.5-5.1)
[2021-09-28 15:54] LABS: BUN/Creatinine Ratio 40.2; Bilirubin, Total 0.9 mg/dL (0.2-1.0); Total Protein 5.8 g/dL (6.4-8.2)
[2021-09-28] MEDS: SOD CHL 0.45% 1,000 ML IV SCH (16:55)
[2021-09-28 17:00] VITALS: BP 102/65
[2021-09-28] MEDS ORDERED: WARFARIN SODIUM 1 MG TAB PO ONE (17:00)
[2021-09-28 22:00] VITALS: BP 111/71
[2021-09-28 23:21] LABS: Calcium 8.5 mg/dL (8.5-10.1); Potassium 5.4 mmol/L (3.5-5.1)
[2021-09-29] MEDS: InsuLIN REG 1unit/0.01ml Soln (100units/ml) SC SCH ×4 (00:57→18:03)
[2021-09-29 05:00] VITALS: BP 107/73
[2021-09-29] MEDS: SODIUM ZIRCONIUM CYCL 10 GM PAK PO SCH ×3 (05:23→22:26)
[2021-09-29] MEDS: ACCU-CHEK COMFORT CURVE STRIP VI SCH ×4 (05:46→17:49)
[2021-09-29] MEDS: SODIUM CHLOR 0.9% PF (SALINE LOCK) 10ML VIAL/SYR IV SCH ×3 (05:47→22:27)
[2021-09-29 06:44] LABS: INR 2.21 (0.9-1.15); Partial Thromboplastin Time 32.2 sec (23.6-33.0)
[2021-09-29] MEDS: Ensure HIGH Protein Chocolate 8oz Bottle PO SCH ×3 (08:00→17:49)
[2021-09-29 09:00] VITALS: BP 110/70
[2021-09-29] MEDS: MEROPENEM 1GM IVPB 100 ML IV SCH ×2 (09:11→22:27)
[2021-09-29] MEDS: ZINC SULFATE 220mg CAP or TAB PO SCH (09:11)
[2021-09-29] MEDS: AMIODARONE HCL 200 MG TAB PO SCH (09:11)
[2021-09-29] MEDS: DexAMETHasone SOD PHOS 10MG/1ML VIAL INJ IV SCH (09:11)
[2021-09-29] MEDS: PANTOPRAZOLE 40 MG TAB PO SCH (09:12)
[2021-09-29] MEDS: MULTIPLE VITAMIN TAB PO SCH (09:12)
[2021-09-29] MEDS: CHOLECALCIFEROL (VITD3) 2,000 UNIT CAP/TAB PO SCH (09:12)
[2021-09-29] MEDS ORDERED: VANCOMYCIN PER PHARMACY 0 MG IV SCH (09:15)
[2021-09-29] MEDS: ALBUTEROL SULF HFA 90MCG INH 200DOSE IN PRN ×2 (10:31→19:14)
[2021-09-29] MEDS: BUDESONIDE (INHALATION) 180 MCG IH IN SCH ×2 (10:32→19:13)
[2021-09-29] MEDS ORDERED: VANCOMYCIN 1GM/250ML 250 ML IV ONE (11:15)
[2021-09-29 13:00] VITALS: BP 125/57
[2021-09-29] MEDS: DOXYCYCLINE 100MG/250ML 250 ML IV SCH ×2 (15:54→22:26)
[2021-09-29 16:52] VITALS: BP 103/68
[2021-09-29] MEDS ORDERED: WARFARIN SODIUM 1 MG TAB PO ONE (17:00)
[2021-09-29 22:00] VITALS: BP 95/64
[2021-09-29] MEDS: METOPROLOL TARTRATE 25 MG TAB PO SCH (22:00)
[2021-09-30] MEDS: ACCU-CHEK COMFORT CURVE STRIP VI SCH ×4 (00:56→17:58)
[2021-09-30] MEDS: InsuLIN REG 1unit/0.01ml Soln (100units/ml) SC SCH ×4 (00:58→18:07)
[2021-09-30 05:00] VITALS: BP 103/62
[2021-09-30] MEDS: SODIUM ZIRCONIUM CYCL 10 GM PAK PO SCH ×3 (06:42→22:44)
[2021-09-30] MEDS: SODIUM CHLOR 0.9% PF (SALINE LOCK) 10ML VIAL/SYR IV SCH ×3 (06:42→22:44)
[2021-09-30] MEDS: ALBUTEROL SULF HFA 90MCG INH 200DOSE IN PRN (07:37)
[2021-09-30] MEDS: BUDESONIDE (INHALATION) 180 MCG IH IN SCH ×2 (07:37→22:00)
[2021-09-30 07:54] LABS: Eosinophils # (auto) 0 10 ^3/uL (0-0.8); Eosinophils % (auto) 0.1 % (0.0-7.0); Lymphocytes # (auto) 0.2 10 ^3/uL (0.4-5.4); White Blood Cell 15.5 10^3/uL (4.4-10.8)
[2021-09-30] MEDS: Ensure HIGH Protein Chocolate 8oz Bottle PO SCH ×3 (08:00→17:58)
[2021-09-30 08:01] LABS: Basophils # (auto) 0.1 10 ^3/uL (0-0.2); Basophils % (auto) 0.6 % (0.0-2.0); Hematocrit 54.7 % (41.0-53.0); Lymphocytes % (auto) 1.5 % (10.0-50.0); Mean Corpuscular Hemoglobin 30.4 pg (28.0-32.0); Mean Corpuscular Volume 92.2 fL (80.0-100.0); Monocytes # (auto) 1.1 10 ^3/uL (0-1.3); Monocytes % (auto) 7.1 % (0.0-12.0); Neutrophils # (auto) 14.1 10 ^3/uL (1.6-8.6); Neutrophils % (auto) 90.7 % (37.0-80.0); Nucleated Red Blood Cells % 0.4 %; Red Blood Cells 5.93 10^6/uL (4.5-5.90); Red Cell Distribution Width 14.6 % (11.8-14.3)
[2021-09-30 08:08] LABS: Potassium 5.4 mmol/L (3.5-5.1)
[2021-09-30 08:12] LABS: INR 2.32 (0.9-1.15); Partial Thromboplastin Time 34.2 sec (23.6-33.0)
[2021-09-30 08:19] LABS: BUN/Creatinine Ratio 40.7; Calcium 8.6 mg/dL (8.5-10.1)
[2021-09-30 08:30] VITALS: BP 99/65
[2021-09-30] MEDS: DexAMETHasone SOD PHOS 10MG/1ML VIAL INJ IV SCH (09:38)
[2021-09-30] MEDS: MEROPENEM 1GM IVPB 100 ML IV SCH ×2 (09:38→23:26)
[2021-09-30] MEDS: CHOLECALCIFEROL (VITD3) 2,000 UNIT CAP/TAB PO SCH (09:39)
[2021-09-30] MEDS: AMIODARONE HCL 200 MG TAB PO SCH (09:39)
[2021-09-30] MEDS: ZINC SULFATE 220mg CAP or TAB PO SCH (09:39)
[2021-09-30] MEDS: MULTIPLE VITAMIN TAB PO SCH (09:39)
[2021-09-30] MEDS: PANTOPRAZOLE 40 MG TAB PO SCH (09:39)
[2021-09-30] MEDS: METOPROLOL TARTRATE 25 MG TAB PO SCH ×2 (09:40→22:44)
[2021-09-30] MEDS: DOXYCYCLINE 100MG/250ML 250 ML IV SCH ×2 (10:00→22:44)
[2021-09-30] MEDS ORDERED: FUROSEMIDE 20 MG TAB PO ONE (10:15)
[2021-09-30 12:30] VITALS: BP 107/59
[2021-09-30 17:00] VITALS: BP 102/61
[2021-09-30] MEDS ORDERED: WARFARIN SODIUM 1 MG TAB PO ONE (17:00)
[2021-09-30 22:00] VITALS: BP 105/61
[2021-10-01] MEDS: ACCU-CHEK COMFORT CURVE STRIP VI SCH ×4 (00:55→17:43)
[2021-10-01] MEDS: InsuLIN REG 1unit/0.01ml Soln (100units/ml) SC SCH ×4 (00:58→18:13)
[2021-10-01] MEDS: ALBUTEROL SULF HFA 90MCG INH 200DOSE IN PRN ×3 (01:48→19:52)
[2021-10-01 05:00] VITALS: BP 93/65
[2021-10-01] MEDS: SODIUM ZIRCONIUM CYCL 10 GM PAK PO SCH ×2 (05:28→14:11)
[2021-10-01] MEDS: SODIUM CHLOR 0.9% PF (SALINE LOCK) 10ML VIAL/SYR IV SCH ×3 (05:28→22:16)
[2021-10-01] MEDS: BUDESONIDE (INHALATION) 180 MCG IH IN SCH ×2 (05:45→19:52)
[2021-10-01 06:54] LABS: Basophils # (auto) 0.1 10 ^3/uL (0-0.2)
[2021-10-01 06:57] LABS: Basophils % (auto) 0.7 % (0.0-2.0); Eosinophils # (auto) 0.1 10 ^3/uL (0-0.8); Eosinophils % (auto) 0.4 % (0.0-7.0); Hematocrit 55.3 % (41.0-53.0); Hemoglobin 18.3 g/dL (13.5-17.5); Lymphocytes # (auto) 0.3 10 ^3/uL (0.4-5.4); Lymphocytes % (auto) 2.1 % (10.0-50.0); Mean Corpuscular Hemoglobin 30.3 pg (28.0-32.0); Mean Corpuscular Volume 91.9 fL (80.0-100.0); Monocytes # (auto) 1.1 10 ^3/uL (0-1.3); Monocytes % (auto) 7.2 % (0.0-12.0); Neutrophils # (auto) 13.2 10 ^3/uL (1.6-8.6); Neutrophils % (auto) 89.6 % (37.0-80.0); Nucleated Red Blood Cells % 0.1 %; Red Blood Cells 6.02 10^6/uL (4.5-5.90); Red Cell Distribution Width 14.1 % (11.8-14.3); White Blood Cell 14.7 10^3/uL (4.4-10.8)
[2021-10-01 06:58] LABS: INR 2.19 (0.9-1.15); Partial Thromboplastin Time 33.7 sec (23.6-33.0)
[2021-10-01 07:17] LABS: Potassium 4.8 mmol/L (3.5-5.1)
[2021-10-01 07:22] LABS: BUN/Creatinine Ratio 40.1; Calcium 8.1 mg/dL (8.5-10.1)
[2021-10-01] MEDS: Ensure HIGH Protein Chocolate 8oz Bottle PO SCH ×3 (08:00→18:00)
[2021-10-01 09:00] VITALS: BP 123/49
[2021-10-01] MEDS: ONDANSETRON HCL 4 MG/2 ML VIAL IV PRN (09:17)
[2021-10-01] MEDS: MULTIPLE VITAMIN TAB PO SCH (09:18)
[2021-10-01] MEDS: PANTOPRAZOLE 40 MG TAB PO SCH (09:18)
[2021-10-01] MEDS: CHOLECALCIFEROL (VITD3) 2,000 UNIT CAP/TAB PO SCH (09:18)
[2021-10-01] MEDS: AMIODARONE HCL 200 MG TAB PO SCH (09:19)
[2021-10-01] MEDS: LORazepam 0.5 MG TAB PO PRN (09:19)
[2021-10-01] MEDS: ZINC SULFATE 220mg CAP or TAB PO SCH (09:19)
[2021-10-01] MEDS: DOXYCYCLINE 100MG/250ML 250 ML IV SCH ×2 (09:30→22:17)
[2021-10-01] MEDS: METOPROLOL TARTRATE 25 MG TAB PO SCH ×2 (09:43→22:17)
[2021-10-01] MEDS: MEROPENEM 1GM IVPB 100 ML IV SCH ×2 (11:38→22:00)
[2021-10-01 13:00] VITALS: BP 109/72
[2021-10-01 17:00] VITALS: BP 101/62
[2021-10-01] MEDS ORDERED: WARFARIN SODIUM 1 MG TAB PO ONE (17:00)
[2021-10-01 20:00] VITALS: BP 104/65
[2021-10-01 22:00] VITALS: BP 104/65
[2021-10-02] MEDS: ACCU-CHEK COMFORT CURVE STRIP VI SCH ×4 (00:16→18:09)
[2021-10-02] MEDS: InsuLIN REG 1unit/0.01ml Soln (100units/ml) SC SCH ×4 (00:17→18:00)
[2021-10-02] MEDS: MEROPENEM 1GM IVPB 100 ML IV SCH ×3 (00:17→23:25)
[2021-10-02 05:00] VITALS: BP 98/53
[2021-10-02] MEDS: SODIUM CHLOR 0.9% PF (SALINE LOCK) 10ML VIAL/SYR IV SCH ×3 (06:20→21:58)
[2021-10-02 07:52] LABS: Nucleated Red Blood Cells % 0.1 %; Red Cell Distribution Width 14.6 % (11.8-14.3)
[2021-10-02] MEDS: Ensure HIGH Protein Chocolate 8oz Bottle PO SCH ×3 (07:54→18:53)
[2021-10-02 07:58] LABS: Basophils # (auto) 0 10 ^3/uL (0-0.2); Basophils % (auto) 0.3 % (0.0-2.0); Eosinophils # (auto) 0.3 10 ^3/uL (0-0.8); Hemoglobin 19.3 g/dL (13.5-17.5); Lymphocytes # (auto) 0.3 10 ^3/uL (0.4-5.4); Lymphocytes % (auto) 2.1 % (10.0-50.0); Mean Corpuscular Hemoglobin 30.2 pg (28.0-32.0); Mean Corpuscular Hgb Conc. 32.7 g/dL (32.0-36.0); Mean Corpuscular Volume 92.3 fL (80.0-100.0); Monocytes # (auto) 0.6 10 ^3/uL (0-1.3); Monocytes % (auto) 3.9 % (0.0-12.0); Neutrophils # (auto) 13.2 10 ^3/uL (1.6-8.6); Neutrophils % (auto) 91.7 % (37.0-80.0); Red Blood Cells 6.39 10^6/uL (4.5-5.90); White Blood Cell 14.4 10^3/uL (4.4-10.8)
[2021-10-02 08:00] VITALS: BP 103/50
[2021-10-02 08:13] LABS: Lactic Acid w/Reflex 2.3 mmol/L (0.4-2.0)
[2021-10-02 08:16] LABS: INR 2.03 (0.9-1.15)
[2021-10-02 08:28] LABS: Albumin 2.1 g/dL (3.4-5.0); BUN/Creatinine Ratio 36.4; Bilirubin, Total 1.1 mg/dL (0.2-1.0); CRP High Sensitivity 0.45 mg/dL (< 0.3); Calcium 8.6 mg/dL (8.5-10.1); Total Protein 5.7 g/dL (6.4-8.2)
[2021-10-02] MEDS: PANTOPRAZOLE 40 MG TAB PO SCH (09:59)
[2021-10-02] MEDS: ZINC SULFATE 220mg CAP or TAB PO SCH (10:00)
[2021-10-02] MEDS: MULTIPLE VITAMIN TAB PO SCH (10:00)
[2021-10-02] MEDS: CHOLECALCIFEROL (VITD3) 2,000 UNIT CAP/TAB PO SCH (10:00)
[2021-10-02] MEDS: METOPROLOL TARTRATE 25 MG TAB PO SCH ×2 (10:00→21:58)
[2021-10-02] MEDS: AMIODARONE HCL 200 MG TAB PO SCH (10:00)
[2021-10-02] MEDS: DOXYCYCLINE 100MG/250ML 250 ML IV SCH ×2 (10:10→21:25)
[2021-10-02] MEDS: ALBUTEROL SULF HFA 90MCG INH 200DOSE IN PRN ×2 (10:36→19:42)
[2021-10-02] MEDS: BUDESONIDE (INHALATION) 180 MCG IH IN SCH ×2 (10:36→19:42)
[2021-10-02 12:00] VITALS: BP 97/48
[2021-10-02 16:00] VITALS: BP 95/68
[2021-10-02] MEDS ORDERED: WARFARIN SODIUM 1 MG TAB PO ONE (17:00)
[2021-10-02 20:00] VITALS: BP 97/65
[2021-10-02 22:00] VITALS: BP 97/65
[2021-10-03] VITALS (7 sets, daily range): BP systolic 99–124; BP diastolic 53–69
[2021-10-03] MEDS: ACCU-CHEK COMFORT CURVE STRIP VI SCH ×4 (00:08→17:45)
[2021-10-03] MEDS ORDERED: SODIUM CHLORIDE 0.9% 1,000 ML IV ONE (00:30)
[2021-10-03] MEDS ORDERED: LACTULOSE 20Gm/30ML SOLN PO PRN (00:30)
[2021-10-03] MEDS: InsuLIN REG 1unit/0.01ml Soln (100units/ml) SC SCH ×4 (06:00→17:45)
[2021-10-03] MEDS: SODIUM CHLOR 0.9% PF (SALINE LOCK) 10ML VIAL/SYR IV SCH ×3 (06:12→22:25)
[2021-10-03 06:42] LABS: Basophils # (auto) 0.3 10 ^3/uL (0-0.2); Basophils % (auto) 1.4 % (0.0-2.0); Eosinophils # (auto) 0.4 10 ^3/uL (0-0.8); Eosinophils % (auto) 2.1 % (0.0-7.0); Hematocrit 55.2 % (41.0-53.0); Hemoglobin 18.2 g/dL (13.5-17.5); Lymphocytes # (auto) 0.3 10 ^3/uL (0.4-5.4); Lymphocytes % (auto) 1.8 % (10.0-50.0); Mean Corpuscular Hemoglobin 30.3 pg (28.0-32.0); Mean Corpuscular Hgb Conc. 32.9 g/dL (32.0-36.0); Monocytes # (auto) 0.7 10 ^3/uL (0-1.3); Monocytes % (auto) 3.9 % (0.0-12.0); Neutrophils # (auto) 16.9 10 ^3/uL (1.6-8.6); Neutrophils % (auto) 90.8 % (37.0-80.0); Nucleated Red Blood Cells % 0.4 %; Red Cell Distribution Width 14.6 % (11.8-14.3); White Blood Cell 18.6 10^3/uL (4.4-10.8)
[2021-10-03 06:55] LABS: Albumin 1.7 g/dL (3.4-5.0); Calcium 7.9 mg/dL (8.5-10.1); Potassium 5.3 mmol/L (3.5-5.1)
[2021-10-03 06:58] LABS: BUN/Creatinine Ratio 37.1
[2021-10-03 06:59] LABS: INR 1.96 (0.9-1.15); Partial Thromboplastin Time 34.7 sec (23.6-33.0)
[2021-10-03 07:01] LABS: Total Protein 5.1 g/dL (6.4-8.2)
[2021-10-03 07:31] LABS: Lactic Acid w/Reflex 2.5 mmol/L (0.4-2.0)
[2021-10-03] MEDS: Ensure HIGH Protein Chocolate 8oz Bottle PO SCH ×4 (08:41→22:25)
[2021-10-03] MEDS: NITROGLYCERIN 0.4 MG SL TAB SL PRN ×2 (09:06→09:15)
[2021-10-03] MEDS: DOCUSATE SOD 100 MG CAP PO SCH ×2 (09:54→22:24)
[2021-10-03] MEDS: MEROPENEM 1GM IVPB 100 ML IV SCH ×2 (09:54→22:25)
[2021-10-03] MEDS: CHOLECALCIFEROL (VITD3) 2,000 UNIT CAP/TAB PO SCH (09:54)
[2021-10-03] MEDS: ZINC SULFATE 220mg CAP or TAB PO SCH (09:54)
[2021-10-03] MEDS: PANTOPRAZOLE 40 MG TAB PO SCH (09:54)
[2021-10-03] MEDS: AMIODARONE HCL 200 MG TAB PO SCH (09:55)
[2021-10-03] MEDS: MULTIPLE VITAMIN TAB PO SCH (09:55)
[2021-10-03] MEDS: BUDESONIDE (INHALATION) 180 MCG IH IN SCH ×2 (10:00→21:55)
[2021-10-03] MEDS: SODIUM ZIRCONIUM CYCL 10 GM PAK PO SCH ×2 (12:56→22:25)
[2021-10-03] MEDS: ONDANSETRON HCL 4 MG/2 ML VIAL IV PRN (13:25)
[2021-10-03] MEDS ORDERED: SODIUM ZIRCONIUM CYCL 10 GM PAK PO ONE (14:00)
[2021-10-03] MEDS: ALBUTEROL SULF HFA 90MCG INH 200DOSE IN PRN ×2 (14:07→21:56)
[2021-10-03] MEDS ORDERED: levoFLOXacin 750MG 150 ML IV SCH (15:15)
[2021-10-03] MEDS ORDERED: WARF2.5T39 PO (15:38)
[2021-10-03] MEDS: SODIUM CHLORIDE 0.9% 1,000 ML IV SCH (15:47)
[2021-10-03] MEDS ORDERED: WARFARIN SODIUM 2 MG TAB PO ONE (17:00)
[2021-10-04 05:00] VITALS: BP 124/64
[2021-10-04] MEDS: InsuLIN REG 1unit/0.01ml Soln (100units/ml) SC SCH ×4 (06:00→17:42)
[2021-10-04] MEDS: ACCU-CHEK COMFORT CURVE STRIP VI SCH ×4 (06:00→17:42)
[2021-10-04] MEDS: SODIUM CHLOR 0.9% PF (SALINE LOCK) 10ML VIAL/SYR IV SCH ×3 (06:00→21:44)
[2021-10-04] MEDS: Ensure HIGH Protein Chocolate 8oz Bottle PO SCH ×3 (06:00→21:44)
[2021-10-04] MEDS: SODIUM ZIRCONIUM CYCL 10 GM PAK PO SCH (07:00)
[2021-10-04] MEDS: ALBUTEROL SULF HFA 90MCG INH 200DOSE IN PRN ×2 (07:20→20:06)
[2021-10-04] MEDS: BUDESONIDE (INHALATION) 180 MCG IH IN SCH ×2 (07:20→20:05)
[2021-10-04 09:00] VITALS: BP 112/68
[2021-10-04] MEDS: MULTIPLE VITAMIN TAB PO SCH (10:03)
[2021-10-04] MEDS: ZINC SULFATE 220mg CAP or TAB PO SCH (10:03)
[2021-10-04] MEDS: DOCUSATE SOD 100 MG CAP PO SCH ×2 (10:03→21:47)
[2021-10-04] MEDS: PANTOPRAZOLE 40 MG TAB PO SCH (10:03)
[2021-10-04] MEDS: AMIODARONE HCL 200 MG TAB PO SCH (10:03)
[2021-10-04] MEDS: CHOLECALCIFEROL (VITD3) 2,000 UNIT CAP/TAB PO SCH (10:03)
[2021-10-04] MEDS: MEROPENEM 1GM IVPB 100 ML IV SCH (10:04)
[2021-10-04 10:52] LABS: Basophils # (auto) 0.2 10 ^3/uL (0-0.2); Basophils % (auto) 0.9 % (0.0-2.0); Eosinophils # (auto) 0.3 10 ^3/uL (0-0.8); Eosinophils % (auto) 1.7 % (0.0-7.0); Hematocrit 51.2 % (41.0-53.0); Hemoglobin 16.6 g/dL (13.5-17.5); Lymphocytes # (auto) 0.2 10 ^3/uL (0.4-5.4); Lymphocytes % (auto) 1.2 % (10.0-50.0); Mean Corpuscular Hemoglobin 30.1 pg (28.0-32.0); Mean Corpuscular Hgb Conc. 32.4 g/dL (32.0-36.0); Mean Corpuscular Volume 92.7 fL (80.0-100.0); Monocytes # (auto) 0.7 10 ^3/uL (0-1.3); Monocytes % (auto) 3.8 % (0.0-12.0); Neutrophils % (auto) 92.4 % (37.0-80.0); Red Blood Cells 5.52 10^6/uL (4.5-5.90); Red Cell Distribution Width 14.4 % (11.8-14.3); White Blood Cell 18.4 10^3/uL (4.4-10.8)
[2021-10-04 11:04] LABS: INR 2.47 (0.9-1.15); Lactic Acid w/Reflex 2.6 mmol/L (0.4-2.0)
[2021-10-04] MEDS: SODIUM CHLORIDE 0.9% 1,000 ML IV SCH (11:31)
[2021-10-04] MEDS: ONDANSETRON HCL 4 MG/2 ML VIAL IV PRN (11:49)
[2021-10-04 12:00] LABS: Albumin 1.6 g/dL (3.4-5.0); Calcium 7.5 mg/dL (8.5-10.1); Potassium 4.3 mmol/L (3.5-5.1)
[2021-10-04 12:02] LABS: BUN/Creatinine Ratio 27.6
[2021-10-04 12:17] LABS: Bilirubin, Total 0.8 mg/dL (0.2-1.0); Total Protein 5.1 g/dL (6.4-8.2)
[2021-10-04 12:40] VITALS: BP 106/56
[2021-10-04] MEDS ORDERED: predniSONE 20 MG TAB PO ONE (14:30)
[2021-10-04 16:55] VITALS: BP 114/72
[2021-10-04 22:00] VITALS: BP 137/89
[2021-10-05] MEDS: InsuLIN REG 1unit/0.01ml Soln (100units/ml) SC SCH ×4 (00:45→17:27)
[2021-10-05 05:00] VITALS: BP 109/66
[2021-10-05] MEDS: SODIUM CHLOR 0.9% PF (SALINE LOCK) 10ML VIAL/SYR IV SCH ×3 (06:02→21:50)
[2021-10-05] MEDS: ACCU-CHEK COMFORT CURVE STRIP VI SCH ×4 (06:02→17:27)
[2021-10-05] MEDS: Ensure HIGH Protein Chocolate 8oz Bottle PO SCH ×3 (06:03→22:00)
[2021-10-05 07:21] LABS: Basophils # (auto) 0.1 10 ^3/uL (0-0.2); Basophils % (auto) 0.7 % (0.0-2.0); Eosinophils # (auto) 0.1 10 ^3/uL (0-0.8); Eosinophils % (auto) 0.4 % (0.0-7.0); Hematocrit 52.5 % (41.0-53.0); Hemoglobin 17.4 g/dL (13.5-17.5); Lymphocytes # (auto) 0.2 10 ^3/uL (0.4-5.4); Lymphocytes % (auto) 1.2 % (10.0-50.0); Mean Corpuscular Hemoglobin 30.5 pg (28.0-32.0); Mean Corpuscular Volume 92.4 fL (80.0-100.0); Monocytes # (auto) 0.6 10 ^3/uL (0-1.3); Monocytes % (auto) 3.7 % (0.0-12.0); Neutrophils # (auto) 14.4 10 ^3/uL (1.6-8.6); Nucleated Red Blood Cells % 0.1 %; Red Blood Cells 5.68 10^6/uL (4.5-5.90); Red Cell Distribution Width 14.6 % (11.8-14.3); White Blood Cell 15.3 10^3/uL (4.4-10.8)
[2021-10-05 07:34] LABS: INR 2.85 (0.9-1.15); Partial Thromboplastin Time 39.9 sec (23.6-33.0)
[2021-10-05 07:35] LABS: Albumin 1.8 g/dL (3.4-5.0); Calcium 8.1 mg/dL (8.5-10.1); Potassium 4.9 mmol/L (3.5-5.1)
[2021-10-05 07:40] LABS: BUN/Creatinine Ratio 29.5; Bilirubin, Total 0.8 mg/dL (0.2-1.0); Total Protein 5.5 g/dL (6.4-8.2)
[2021-10-05 09:00] VITALS: BP 118/66
[2021-10-05] MEDS: ZINC SULFATE 220mg CAP or TAB PO SCH (09:20)
[2021-10-05] MEDS: PANTOPRAZOLE 40 MG TAB PO SCH (09:20)
[2021-10-05] MEDS: CHOLECALCIFEROL (VITD3) 2,000 UNIT CAP/TAB PO SCH (09:20)
[2021-10-05] MEDS: AMIODARONE HCL 200 MG TAB PO SCH (09:20)
[2021-10-05] MEDS: DOCUSATE SOD 100 MG CAP PO SCH ×2 (09:20→21:50)
[2021-10-05] MEDS: MULTIPLE VITAMIN TAB PO SCH (09:21)
[2021-10-05] MEDS: SODIUM CHLORIDE 0.9% 1,000 ML IV SCH (09:28)
[2021-10-05] MEDS: BUDESONIDE (INHALATION) 180 MCG IH IN SCH ×2 (09:57→19:03)
[2021-10-05] MEDS: ALBUTEROL SULF HFA 90MCG INH 200DOSE IN PRN (09:58)
[2021-10-05] MEDS ORDERED: predniSONE 20 MG TAB PO SCH (10:00)
[2021-10-05 12:32] VITALS: BP 114/49
[2021-10-05] MEDS ORDERED: DexAMETHasone SOD PHOS 4 MG/1ML SDV INJ IV ONE (16:05)
[2021-10-05 16:46] VITALS: BP 109/63
[2021-10-05 22:00] VITALS: BP 114/73
[2021-10-06] VITALS (14 sets, daily range): BP systolic 83–117; BP diastolic 45–76
[2021-10-06] MEDS: ACCU-CHEK COMFORT CURVE STRIP VI SCH ×4 (00:12→17:32)
[2021-10-06] MEDS: SODIUM CHLORIDE 0.9% 1,000 ML IV SCH ×2 (03:15→21:12)
[2021-10-06] MEDS: BUDESONIDE (INHALATION) 180 MCG IH IN SCH ×2 (05:47→19:04)
[2021-10-06] MEDS: ALBUTEROL SULF HFA 90MCG INH 200DOSE IN PRN ×2 (05:47→20:03)
[2021-10-06] MEDS: Ensure HIGH Protein Chocolate 8oz Bottle PO SCH ×2 (06:00→14:15)
[2021-10-06] MEDS: InsuLIN REG 1unit/0.01ml Soln (100units/ml) SC SCH ×4 (06:00→17:32)
[2021-10-06] MEDS: SODIUM CHLOR 0.9% PF (SALINE LOCK) 10ML VIAL/SYR IV SCH ×3 (06:09→22:48)
[2021-10-06] MEDS: DOCUSATE SOD 100 MG CAP PO SCH (08:54)
[2021-10-06] MEDS: DexAMETHasone SOD PHOS 4 MG/1ML SDV INJ IV SCH (08:54)
[2021-10-06] MEDS: AMIODARONE HCL 200 MG TAB PO SCH (08:54)
[2021-10-06] MEDS: ZINC SULFATE 220mg CAP or TAB PO SCH (08:54)
[2021-10-06] MEDS: PANTOPRAZOLE 40 MG TAB PO SCH ×2 (08:55→19:15)
[2021-10-06] MEDS: MULTIPLE VITAMIN TAB PO SCH (08:55)
[2021-10-06] MEDS: CHOLECALCIFEROL (VITD3) 2,000 UNIT CAP/TAB PO SCH (08:55)
[2021-10-06 10:13] LABS: Albumin 1.7 g/dL (3.4-5.0); Basophils # (auto) 0.1 10 ^3/uL (0-0.2); Basophils % (auto) 0.8 % (0.0-2.0); Calcium 7.9 mg/dL (8.5-10.1); Eosinophils # (auto) 0.1 10 ^3/uL (0-0.8); Eosinophils % (auto) 0.4 % (0.0-7.0); Hematocrit 49.8 % (41.0-53.0); Hemoglobin 16.4 g/dL (13.5-17.5); Lymphocytes # (auto) 0.3 10 ^3/uL (0.4-5.4); Lymphocytes % (auto) 1.5 % (10.0-50.0); Mean Corpuscular Hemoglobin 30.5 pg (28.0-32.0); Mean Corpuscular Hgb Conc. 32.9 g/dL (32.0-36.0); Mean Corpuscular Volume 92.7 fL (80.0-100.0); Monocytes % (auto) 5.6 % (0.0-12.0); Neutrophils # (auto) 16.8 10 ^3/uL (1.6-8.6); Neutrophils % (auto) 91.7 % (37.0-80.0); Potassium 4.6 mmol/L (3.5-5.1); Red Blood Cells 5.37 10^6/uL (4.5-5.90); Red Cell Distribution Width 14.4 % (11.8-14.3); White Blood Cell 18.3 10^3/uL (4.4-10.8)
[2021-10-06 10:16] LABS: Lactic Acid w/Reflex 2.1 mmol/L (0.4-2.0)
[2021-10-06 10:18] LABS: BUN/Creatinine Ratio 30.4; Bilirubin, Total 0.9 mg/dL (0.2-1.0); Total Protein 5.3 g/dL (6.4-8.2)
[2021-10-06 10:21] LABS: INR 2.08 (0.9-1.15)
[2021-10-06 13:26] LABS: Hematocrit 42.7 % (41.0-53.0); Hemoglobin 13.7 g/dL (13.5-17.5)
[2021-10-06] MEDS ORDERED: PHYTONADIONE (VIT K)10 MG/ML 1ML VIAL IV ONE (13:30)
[2021-10-06 15:23] LABS: Basophils # (auto) 0.1 10 ^3/uL (0-0.2); Basophils % (auto) 0.5 % (0.0-2.0); Eosinophils # (auto) 0.1 10 ^3/uL (0-0.8); Eosinophils % (auto) 0.4 % (0.0-7.0); Hematocrit 38.2 % (41.0-53.0); Hemoglobin 12.3 g/dL (13.5-17.5); Lymphocytes # (auto) 0.2 10 ^3/uL (0.4-5.4); Lymphocytes % (auto) 0.9 % (10.0-50.0); Mean Corpuscular Hemoglobin 30.1 pg (28.0-32.0); Mean Corpuscular Hgb Conc. 32.2 g/dL (32.0-36.0); Mean Corpuscular Volume 93.4 fL (80.0-100.0); Monocytes # (auto) 1.4 10 ^3/uL (0-1.3); Monocytes % (auto) 7.1 % (0.0-12.0); Neutrophils # (auto) 18.3 10 ^3/uL (1.6-8.6); Neutrophils % (auto) 91.1 % (37.0-80.0); Red Blood Cells 4.09 10^6/uL (4.5-5.90); Red Cell Distribution Width 14.6 % (11.8-14.3)
[2021-10-06 15:37] LABS: INR 2.02 (0.9-1.15)
[2021-10-06] MEDS ORDERED: FUROSEMIDE 20 MG/2 ML VIAL IV ONE (19:00)
[2021-10-06] MEDS ORDERED: PIPERACILLIN-TAZOB 3.375GM 100 ML IV ONE (19:15)
[2021-10-07] VITALS (56 sets, daily range): BP systolic 66–124; BP diastolic 21–73
[2021-10-07] MEDS: PIPERACILLIN-TAZOB 3.375GM 100 ML IV SCH ×4 (02:10→20:29)
[2021-10-07] MEDS: SODIUM CHLOR 0.9% PF (SALINE LOCK) 10ML VIAL/SYR IV SCH ×3 (06:58→20:29)
[2021-10-07] MEDS: SODIUM CHLORIDE 0.9% 1,000 ML IV SCH ×2 (07:02→15:56)
[2021-10-07 07:52] LABS: Basophils # (auto) 0.1 10 ^3/uL (0-0.2); Basophils % (auto) 0.5 % (0.0-2.0); Eosinophils # (auto) 0.1 10 ^3/uL (0-0.8); Eosinophils % (auto) 0.7 % (0.0-7.0); Hematocrit 35.2 % (41.0-53.0); Hemoglobin 11.4 g/dL (13.5-17.5); Lymphocytes # (auto) 0.3 10 ^3/uL (0.4-5.4); Lymphocytes % (auto) 1.7 % (10.0-50.0); Mean Corpuscular Hemoglobin 29.9 pg (28.0-32.0); Mean Corpuscular Hgb Conc. 32.4 g/dL (32.0-36.0); Mean Corpuscular Volume 92.3 fL (80.0-100.0); Monocytes # (auto) 1.4 10 ^3/uL (0-1.3); Neutrophils # (auto) 18.1 10 ^3/uL (1.6-8.6); Neutrophils % (auto) 90.1 % (37.0-80.0); Red Blood Cells 3.81 10^6/uL (4.5-5.90); Red Cell Distribution Width 14.3 % (11.8-14.3); White Blood Cell 20.1 10^3/uL (4.4-10.8)
[2021-10-07] MEDS: DexAMETHasone SOD PHOS 4 MG/1ML SDV INJ IV SCH (10:00)
[2021-10-07] MEDS: PANTOPRAZOLE 40 MG TAB PO SCH (10:00)
[2021-10-07] MEDS: AMIODARONE HCL 200 MG TAB PO SCH (10:00)
[2021-10-07] MEDS ORDERED: NOREPINEPHRINE 8 MG/250ML KIT 250 ML IV ONE (11:32)
[2021-10-07] MEDS ORDERED: PHYTONADIONE (VIT K)10 MG/ML 1ML VIAL IV ONE (11:45)
[2021-10-07] MEDS: NOREPINEPHRINE 8 MG/250ML KIT 250 ML IV SCH (15:30)
[2021-10-07] MEDS ORDERED: phytonadione 10 MG in SODIUM CHL 0.9% 50 ML IV ONE (16:00)
[2021-10-07 16:13] LABS: INR 1.1 (0.9-1.15); Partial Thromboplastin Time 29.6 sec (23.6-33.0)
[2021-10-07 16:14] LABS: BUN/Creatinine Ratio 34.5; Calcium 7.3 mg/dL (8.5-10.1); Potassium 4.8 mmol/L (3.5-5.1)
[2021-10-07 18:38] LABS: Hematocrit 30.2 % (41.0-53.0); Hemoglobin 9.8 g/dL (13.5-17.5)
[2021-10-07] MEDS: PANTOPRAZOLE 40 MG/10 ML VIAL INJ IV SCH (20:29)
[2021-10-07] MEDS ORDERED: PANTOPRAZOLE 40 MG TAB PO SCH (22:00)
[2021-10-07] MEDS: BUDESONIDE (INHALATION) 180 MCG IH IN SCH (22:00)
[2021-10-07] MEDS: ALBUTEROL SULF HFA 90MCG INH 200DOSE IN PRN (22:47)
[2021-10-08] VITALS (80 sets, daily range): BP systolic 84–129; BP diastolic 30–69
[2021-10-08] MEDS: SODIUM CHLORIDE 0.9% 1,000 ML IV SCH ×3 (00:06→17:47)
[2021-10-08] MEDS: PIPERACILLIN-TAZOB 3.375GM 100 ML IV SCH ×4 (02:02→21:12)
[2021-10-08 03:54] LABS: Basophils # (auto) 0.2 10 ^3/uL (0-0.2); Basophils % (auto) 0.7 % (0.0-2.0); Eosinophils # (auto) 0 10 ^3/uL (0-0.8); Eosinophils % (auto) 0.2 % (0.0-7.0); Hematocrit 27.6 % (41.0-53.0); Hemoglobin 8.9 g/dL (13.5-17.5); Lymphocytes # (auto) 0.4 10 ^3/uL (0.4-5.4); Lymphocytes % (auto) 1.6 % (10.0-50.0); Mean Corpuscular Hemoglobin 29.9 pg (28.0-32.0); Mean Corpuscular Hgb Conc. 32.2 g/dL (32.0-36.0); Mean Corpuscular Volume 92.8 fL (80.0-100.0); Monocytes % (auto) 4.1 % (0.0-12.0); Neutrophils # (auto) 23.3 10 ^3/uL (1.6-8.6); Neutrophils % (auto) 93.4 % (37.0-80.0); Nucleated Red Blood Cells % 0.1 %; Red Blood Cells 2.98 10^6/uL (4.5-5.90); Red Cell Distribution Width 14.6 % (11.8-14.3)
[2021-10-08 04:04] LABS: INR 1.18 (0.9-1.15)
[2021-10-08 04:09] LABS: Albumin 1.4 g/dL (3.4-5.0); BUN/Creatinine Ratio 30.6; Calcium 7.1 mg/dL (8.5-10.1); Potassium 4.4 mmol/L (3.5-5.1)
[2021-10-08 04:12] LABS: Bilirubin, Total 0.8 mg/dL (0.2-1.0); Total Protein 4.3 g/dL (6.4-8.2)
[2021-10-08] MEDS: SODIUM CHLOR 0.9% PF (SALINE LOCK) 10ML VIAL/SYR IV SCH ×3 (04:35→21:12)
[2021-10-08] MEDS: BUDESONIDE (INHALATION) 180 MCG IH IN SCH ×2 (06:50→19:13)
[2021-10-08] MEDS: ALBUTEROL SULF HFA 90MCG INH 200DOSE IN PRN ×2 (06:59→19:13)
[2021-10-08] MEDS: AMIODARONE HCL 200 MG TAB PO SCH (09:37)
[2021-10-08] MEDS: DexAMETHasone SOD PHOS 4 MG/1ML SDV INJ IV SCH (09:37)
[2021-10-08] MEDS: PANTOPRAZOLE 40 MG/10 ML VIAL INJ IV SCH ×2 (09:37→21:12)
[2021-10-08] MEDS ORDERED: FUROSEMIDE 20 MG/2 ML VIAL IV ONE (10:45)
[2021-10-08 15:06] LABS: Basophils # (auto) 0.1 10 ^3/uL (0-0.2); Basophils % (auto) 0.3 % (0.0-2.0); Eosinophils # (auto) 0 10 ^3/uL (0-0.8); Eosinophils % (auto) 0.1 % (0.0-7.0); Hematocrit 26.2 % (41.0-53.0); Hemoglobin 8.7 g/dL (13.5-17.5); Lymphocytes # (auto) 0.3 10 ^3/uL (0.4-5.4); Mean Corpuscular Hemoglobin 30.5 pg (28.0-32.0); Mean Corpuscular Hgb Conc. 33.3 g/dL (32.0-36.0); Mean Corpuscular Volume 91.7 fL (80.0-100.0); Monocytes # (auto) 0.7 10 ^3/uL (0-1.3); Monocytes % (auto) 2.8 % (0.0-12.0); Neutrophils # (auto) 24.3 10 ^3/uL (1.6-8.6); Neutrophils % (auto) 95.8 % (37.0-80.0); Red Blood Cells 2.86 10^6/uL (4.5-5.90); Red Cell Distribution Width 14.2 % (11.8-14.3); White Blood Cell 25.4 10^3/uL (4.4-10.8)
[2021-10-08] MEDS: NOREPINEPHRINE 8 MG/250ML KIT 250 ML IV SCH (17:45)
[2021-10-09] VITALS (80 sets, daily range): BP systolic 74–171; BP diastolic 24–148
[2021-10-09] MEDS: PIPERACILLIN-TAZOB 3.375GM 100 ML IV SCH ×3 (04:08→14:00)
[2021-10-09] MEDS: SODIUM CHLOR 0.9% PF (SALINE LOCK) 10ML VIAL/SYR IV SCH ×3 (04:09→22:00)
[2021-10-09 04:44] LABS: Basophils # (auto) 0 10 ^3/uL (0-0.2); Basophils % (auto) 0.1 % (0.0-2.0); Eosinophils # (auto) 0.1 10 ^3/uL (0-0.8); Hemoglobin 8.2 g/dL (13.5-17.5); Lymphocytes # (auto) 0.2 10 ^3/uL (0.4-5.4); Monocytes # (auto) 0.6 10 ^3/uL (0-1.3)
[2021-10-09 04:46] LABS: Eosinophils % (auto) 0.4 % (0.0-7.0); Hematocrit 24.6 % (41.0-53.0); Lymphocytes % (auto) 0.9 % (10.0-50.0); Mean Corpuscular Hemoglobin 30.7 pg (28.0-32.0); Mean Corpuscular Hgb Conc. 33.4 g/dL (32.0-36.0); Monocytes % (auto) 2.9 % (0.0-12.0); Neutrophils % (auto) 95.7 % (37.0-80.0); Red Blood Cells 2.67 10^6/uL (4.5-5.90); Red Cell Distribution Width 14.6 % (11.8-14.3); White Blood Cell 20.9 10^3/uL (4.4-10.8)
[2021-10-09 05:02] LABS: INR 1.22 (0.9-1.15)
[2021-10-09 05:06] LABS: Potassium 4.1 mmol/L (3.5-5.1)
[2021-10-09 05:15] LABS: Albumin 1.3 g/dL (3.4-5.0); BUN/Creatinine Ratio 27.3; Calcium 7.3 mg/dL (8.5-10.1); Magnesium 2.5 mg/dL (1.6-2.6)
[2021-10-09 05:18] LABS: Bilirubin, Total 0.8 mg/dL (0.2-1.0); Total Protein 4.6 g/dL (6.4-8.2)
[2021-10-09] MEDS: ALBUTEROL SULF HFA 90MCG INH 200DOSE IN PRN (06:14)
[2021-10-09] MEDS: BUDESONIDE (INHALATION) 180 MCG IH IN SCH (06:14)
[2021-10-09] MEDS ORDERED: LORazepam 2MG/ML-1ML VIAL ONE (08:40)
[2021-10-09] MEDS ORDERED: LORazepam 2MG/ML-1ML VIAL IV ONE (09:00)
[2021-10-09] MEDS: AMIODARONE HCL 200 MG TAB PO SCH (10:00)
[2021-10-09] MEDS: DexAMETHasone SOD PHOS 4 MG/1ML SDV INJ IV SCH (10:15)
[2021-10-09] MEDS: PANTOPRAZOLE 40 MG/10 ML VIAL INJ IV SCH (10:15)
[2021-10-09] MEDS ORDERED: SODIUM BICARBONATE 8.4 % INJ 50ML VIAL IV STA (10:58)
[2021-10-09] MEDS ORDERED: FUROSEMIDE 20 MG/2 ML VIAL IV ONE ×2 (11:30→19:15)
[2021-10-09] MEDS: SODIUM BICARBONATE 50ML VIAL 100 ML in SOD CHL 0.45% 1,000 ML IV SCH (11:30)
[2021-10-09] MEDS ORDERED: SODIUM BICARBONATE 8.4 % INJ 50ML VIAL IV ONE (11:30)
[2021-10-09] MEDS ORDERED: ROCURONIUM 10MG/ML 10ML VIAL IV ONE (11:54)
[2021-10-09] MEDS ORDERED: ETOMIDATE (2MG/ML) 20ML VIAL IV ONE (11:54)
[2021-10-09] MEDS ORDERED: fentaNYL Drip 2500mCg/250mlNS 250 ML IV ONE (11:56)
[2021-10-09] MEDS: NOREPINEPHRINE 8 MG/250ML KIT 250 ML IV SCH (12:27)
[2021-10-09] MEDS: fentaNYL Drip 2500mCg/250mlNS 250 ML IV SCH (12:35)
[2021-10-09] MEDS: MIDAZOLAM DRIP 50 mg/50mL 50 ML IV SCH (12:35)
[2021-10-09 13:46] LABS: Hematocrit 24.3 % (41.0-53.0); Hemoglobin 7.8 g/dL (13.5-17.5)
[2021-10-09] MEDS: VASOPRESSIN 50 UNITS in D5W 5% 247.5 ML IV SCH (14:15)
[2021-10-09] MEDS ORDERED: PHENYLEPHRINE INJ 40 MG in SODIUM CHL 0.9% 246 ML IV SCH (16:15)
[2021-10-09] MEDS ORDERED: PANTOPRAZOLE 40 MG/10 ML VIAL INJ IV ONE (17:45)
[2021-10-09] MEDS: NOREPINEPHRINE BITARTRATE 16 MG in SODIUM CHL 0.9% 234 ML IV SCH (19:26)
[2021-10-09] MEDS ORDERED: EPINEPHrine HCL 250 ML IV ONE (19:44)
[2021-10-09] MEDS ORDERED: MEROPENEM 500MG IVPB 50 ML IV SCH (22:00)
[2021-10-09] MEDS: PANTOPRAZOLE 40mg/50ML NS AE 50 ML IV SCH ×2 (23:03→23:06)
[2021-10-09] MEDS: PHENYLEPHRINE INJ 80 MG in SODIUM CHL 0.9% 242 ML IV SCH (23:04)
[2021-10-09] MEDS: MEROPENEM 1GM IVPB 100 ML IV SCH (23:05)
[2021-10-10] VITALS (101 sets, daily range): BP systolic 62–205; BP diastolic 39–83
[2021-10-10 01:45] LABS: Hemoglobin 9.9 g/dL (13.5-17.5)
[2021-10-10 01:51] LABS: Hematocrit 31.6 % (41.0-53.0); Mean Corpuscular Hemoglobin 29.5 pg (28.0-32.0); Mean Corpuscular Hgb Conc. 31.3 g/dL (32.0-36.0); Mean Corpuscular Volume 94.2 fL (80.0-100.0); Red Blood Cells 3.36 10^6/uL (4.5-5.90); Red Cell Distribution Width 15.6 % (11.8-14.3); White Blood Cell 29.8 10^3/uL (4.4-10.8)
[2021-10-10 01:53] LABS: Basophils % (manual) 0 (0.0-2.0); Blast Cells 0; Eosinophils % (manual) 0 (0-7); Metamyelocytes % 0; Myelocytes % 0; Promyelocytes % 0; Reactive Lymphocytes 0
[2021-10-10 01:59] LABS: INR 1.81 (0.9-1.15)
[2021-10-10] MEDS: EPINEPHrine HCL 250 ML IV SCH ×2 (03:31→09:50)
[2021-10-10 03:52] LABS: Band Neutrophils % (manual) 14; Lymphocytes % (manual) 1 (10.0-50.0); Monocytes % (manual) 5 (0-12)
[2021-10-10] MEDS: SODIUM BICARBONATE 50ML VIAL 100 ML in SOD CHL 0.45% 1,000 ML IV SCH (04:08)
[2021-10-10] MEDS: PANTOPRAZOLE 40mg/50ML NS AE 50 ML IV SCH ×5 (04:08→20:24)
[2021-10-10] MEDS: SODIUM CHLOR 0.9% PF (SALINE LOCK) 10ML VIAL/SYR IV SCH ×3 (04:08→22:07)
[2021-10-10 05:04] LABS: Calcium 6.9 mg/dL (8.5-10.1)
[2021-10-10 05:24] LABS: Albumin 1.3 g/dL (3.4-5.0); BUN/Creatinine Ratio 18.2; Magnesium 3.1 mg/dL (1.6-2.6)
[2021-10-10 05:42] LABS: Potassium 5.9 mmol/L (3.5-5.1)
[2021-10-10 05:54] LABS: Lactic Acid w/Reflex 7.5 mmol/L (0.4-2.0)
[2021-10-10] MEDS ORDERED: ALBUMIN 5% 250 ML IV ONE (07:15)
[2021-10-10] MEDS ORDERED: SODIUM ZIRCONIUM CYCL 10 GM PAK PO ONE (07:15)
[2021-10-10] MEDS ORDERED: SODIUM BICARBONATE 8.4 % INJ 50ML VIAL IV ONE ×2 (08:30→08:33)
[2021-10-10] MEDS ORDERED: SODIUM ZIRCONIUM CYCL 10 GM PAK ONE (08:33)
[2021-10-10] MEDS: NOREPINEPHRINE BITARTRATE 16 MG in SODIUM CHL 0.9% 234 ML IV SCH (09:50)
[2021-10-10] MEDS: MEROPENEM 1GM IVPB 100 ML IV SCH (09:51)
[2021-10-10] MEDS ORDERED: DexAMETHasone SOD PHOS 4 MG/1ML SDV INJ IV SCH (10:00)
[2021-10-10] MEDS: EPINEPHrine HCL INJECTION 16 MG in D5W 5% 234 ML IV SCH (11:07)
[2021-10-10] MEDS ORDERED: InsuLIN REG 1unit/0.01ml Soln (100units/ml) IV ONE (11:15)
[2021-10-10] MEDS ORDERED: DEXTROSE (50%) 50ML SYRG IV ONE (11:15)
[2021-10-10] MEDS ORDERED: CALCIUM GLUC 1,000mg/50ml-NS 50 ML IV ONE ×2 (11:15→11:41)
[2021-10-10] MEDS ORDERED: VANCOMYCIN PER PHARMACY 0 MG IV SCH (11:34)
[2021-10-10 11:38] LABS: Hematocrit 26.7 % (41.0-53.0); Hemoglobin 8.6 g/dL (13.5-17.5)
[2021-10-10] MEDS ORDERED: DEXTROSE 50% SYRINGE 50 ML IV ONE (11:42)
[2021-10-10] MEDS ORDERED: HYDROCORTISONE SOD SUCC 100 MG/2ML INJ VIAL IV ONE (12:00)
[2021-10-10] MEDS ORDERED: VANCOMYCIN 1GM/250ML 250 ML IV ONE (12:00)
[2021-10-10] MEDS: NOREPINEPHRINE BITARTRATE 32 MG in SODIUM CHL 0.9% 218 ML IV SCH (12:00)
[2021-10-10] MEDS: DOPamine 1600MCG/ML D5W 250 ML IV SCH (12:00)
[2021-10-10] MEDS: MIDAZOLAM DRIP 50 mg/50mL 50 ML IV SCH ×2 (12:00→23:38)
[2021-10-10] MEDS: fentaNYL Drip 2500mCg/250mlNS 250 ML IV SCH (12:00)
[2021-10-10] MEDS: BUMETANIDE INJECTION 25 MG in GIVE UN-DILUTED 0 ML IV SCH (12:57)
[2021-10-10] MEDS: SODIUM BICARBONATE 50ML VIAL 150 ML in D5W 5% 1,000 ML IV SCH ×2 (13:49→19:25)
[2021-10-10] MEDS: VASOPRESSIN 50 UNITS in D5W 5% 247.5 ML IV SCH (13:50)
[2021-10-10] MEDS ORDERED: AMIODARONE HCL 200 MG TAB PO ONE (15:15)
[2021-10-10] MEDS: ALBUMIN 25% 100 ML IV SCH (16:21)
[2021-10-10] MEDS: PHENYLEPHRINE INJ 80 MG in SODIUM CHL 0.9% 242 ML IV SCH ×2 (16:32→22:48)
[2021-10-10] MEDS: HYDROCORTISONE SOD SUCC 100 MG/2ML INJ VIAL IV SCH (22:07)
[2021-10-10] MEDS: AMIODARONE HCL 200 MG TAB PO SCH (22:07)
[2021-10-10] MEDS: MEROPENEM 500MG IVPB 50 ML IV SCH (22:08)
[2021-10-11] VITALS (103 sets, daily range): BP systolic 80–187; BP diastolic 25–125
[2021-10-11] MEDS: ALBUMIN 25% 100 ML IV SCH ×2 (00:47→08:26)
[2021-10-11] MEDS: SODIUM BICARBONATE 50ML VIAL 150 ML in D5W 5% 1,000 ML IV SCH ×3 (00:50→11:15)
[2021-10-11] MEDS: PANTOPRAZOLE 40mg/50ML NS AE 50 ML IV SCH ×5 (00:56→20:37)
[2021-10-11 04:51] LABS: Basophils # (auto) 0.1 10 ^3/uL (0-0.2); Basophils % (auto) 0.3 % (0.0-2.0); Eosinophils # (auto) 0 10 ^3/uL (0-0.8); Lymphocytes # (auto) 0.3 10 ^3/uL (0.4-5.4); Monocytes # (auto) 0.6 10 ^3/uL (0-1.3)
[2021-10-11 04:53] LABS: Eosinophils % (auto) 0.1 % (0.0-7.0); Hematocrit 24.9 % (41.0-53.0); Hemoglobin 8.4 g/dL (13.5-17.5); Lymphocytes % (auto) 1.4 % (10.0-50.0); Mean Corpuscular Hemoglobin 30.8 pg (28.0-32.0); Mean Corpuscular Hgb Conc. 33.9 g/dL (32.0-36.0); Mean Corpuscular Volume 90.8 fL (80.0-100.0); Monocytes % (auto) 2.7 % (0.0-12.0); Neutrophils # (auto) 22.4 10 ^3/uL (1.6-8.6); Neutrophils % (auto) 95.5 % (37.0-80.0); Nucleated Red Blood Cells % 2.6 %; Red Blood Cells 2.74 10^6/uL (4.5-5.90); Red Cell Distribution Width 15.4 % (11.8-14.3); White Blood Cell 23.4 10^3/uL (4.4-10.8)
[2021-10-11 05:04] LABS: Calcium 6.8 mg/dL (8.5-10.1)
[2021-10-11 05:06] LABS: Albumin 2.7 g/dL (3.4-5.0); BUN/Creatinine Ratio 18.6
[2021-10-11 05:07] LABS: Lactic Acid w/Reflex 4.6 mmol/L (0.4-2.0)
[2021-10-11 05:12] LABS: INR 1.69 (0.9-1.15)
[2021-10-11 05:15] LABS: Bilirubin, Total 3.2 mg/dL (0.2-1.0); Total Protein 5.1 g/dL (6.4-8.2)
[2021-10-11] MEDS: HYDROCORTISONE SOD SUCC 100 MG/2ML INJ VIAL IV SCH ×3 (05:48→22:06)
[2021-10-11] MEDS: SODIUM CHLOR 0.9% PF (SALINE LOCK) 10ML VIAL/SYR IV SCH (05:48)
[2021-10-11] MEDS: fentaNYL Drip 2500mCg/250mlNS 250 ML IV SCH (05:57)
[2021-10-11] MEDS ORDERED: AMIODARONE HCL (50 MG/ ML) 3 ML VIAL IV ONE (06:54)
[2021-10-11] MEDS ORDERED: AMIODARONE HCL 150 MG in D5W 5% 100 ML IV ONE (07:00)
[2021-10-11] MEDS ORDERED: AMIODARONE 450mg/250ml AE 250 ML IV SCH (07:00)
[2021-10-11] MEDS ORDERED: AMIODARONE 450mg/250ml AE 250 ML IV ONE (07:19)
[2021-10-11] MEDS: VASOPRESSIN 50 UNITS in D5W 5% 247.5 ML IV SCH ×2 (08:23→20:34)
[2021-10-11] MEDS: PHENYLEPHRINE INJ 80 MG in SODIUM CHL 0.9% 242 ML IV SCH ×3 (08:24→23:26)
[2021-10-11] MEDS: AMIODARONE HCL 200 MG TAB PO SCH (10:00)
[2021-10-11] MEDS: EPINEPHrine HCL INJECTION 16 MG in D5W 5% 234 ML IV SCH (10:00)
[2021-10-11] MEDS: NOREPINEPHRINE BITARTRATE 32 MG in SODIUM CHL 0.9% 218 ML IV SCH (10:00)
[2021-10-11] MEDS: MEROPENEM 500MG IVPB 50 ML IV SCH ×2 (10:03→22:06)
[2021-10-11] MEDS: DOPamine 1600MCG/ML D5W 250 ML IV SCH ×3 (11:00→20:39)
[2021-10-11] MEDS: BUMETANIDE INJECTION 25 MG in GIVE UN-DILUTED 0 ML IV SCH (11:45)
[2021-10-11] MEDS ORDERED: FUROSEMIDE IV SCH (12:00)
[2021-10-11] MEDS ORDERED: D5W 5% IV SCH (12:00)
[2021-10-11] MEDS ORDERED: DEXTROSE (50%) 50ML SYRG IV PRN (12:45)
[2021-10-11] MEDS: AMIODARONE 450mg/250ml AE 250 ML IV SCH (13:00)
[2021-10-11] MEDS: FUROSEMIDE IV SCH ×2 (13:52→22:06)
[2021-10-11] MEDS: D5W 5% IV SCH ×2 (13:52→22:06)
[2021-10-11] MEDS ORDERED: CALCIUM GLUC 1,000mg/50ml-NS 50 ML IV ONE ×2 (14:00→15:00)
[2021-10-11] MEDS: MIDAZOLAM DRIP 50 mg/50mL 50 ML IV SCH ×2 (17:15→20:35)
[2021-10-11] MEDS: InsuLIN REG 1unit/0.01ml Soln (100units/ml) SC SCH ×2 (18:00→23:31)
[2021-10-11] MEDS: ACCU-CHEK COMFORT CURVE STRIP VI SCH ×2 (18:04→23:32)
[2021-10-11 20:12] LABS: Hemoglobin 9.7 g/dL (13.5-17.5)
[2021-10-11 20:14] LABS: Hematocrit 28.8 % (41.0-53.0); Mean Corpuscular Hemoglobin 30.7 pg (28.0-32.0); Mean Corpuscular Hgb Conc. 33.7 g/dL (32.0-36.0); Mean Corpuscular Volume 91.2 fL (80.0-100.0); Red Blood Cells 3.15 10^6/uL (4.5-5.90); Red Cell Distribution Width 14.9 % (11.8-14.3); White Blood Cell 28.4 10^3/uL (4.4-10.8)
[2021-10-11 20:25] LABS: Basophils % (manual) 0 (0.0-2.0); Eosinophils % (manual) 0 (0-7); Metamyelocytes % 0; Myelocytes % 0; Promyelocytes % 0
[2021-10-11 20:26] LABS: Blast Cells 0; Reactive Lymphocytes 0
[2021-10-11 20:33] LABS: INR 2.02 (0.9-1.15); Partial Thromboplastin Time 40.4 sec (23.6-33.0)
[2021-10-11 20:42] LABS: Band Neutrophils % (manual) 16; Lymphocytes % (manual) 2 (10.0-50.0); Monocytes % (manual) 6 (0-12)
[2021-10-11 22:54] LABS: Hemoglobin 9.6 g/dL (13.5-17.5); Red Cell Distribution Width 15.2 % (11.8-14.3)
[2021-10-11 22:56] LABS: Hematocrit 28.6 % (41.0-53.0); Mean Corpuscular Hemoglobin 30.6 pg (28.0-32.0); Mean Corpuscular Hgb Conc. 33.6 g/dL (32.0-36.0); Mean Corpuscular Volume 91.2 fL (80.0-100.0); Red Blood Cells 3.14 10^6/uL (4.5-5.90)
[2021-10-11 23:00] LABS: Basophils % (manual) 0 (0.0-2.0); Blast Cells 0; Eosinophils % (manual) 0 (0-7); Metamyelocytes % 0; Promyelocytes % 0; Reactive Lymphocytes 0
[2021-10-11 23:05] LABS: INR 2.05 (0.9-1.15); Partial Thromboplastin Time 41.5 sec (23.6-33.0)
[2021-10-12] VITALS (96 sets, daily range): BP systolic 67–176; BP diastolic 44–68
[2021-10-12] LABS: Band Neutrophils % (manual) 18; Lymphocytes % (manual) 4 (10.0-50.0); Monocytes % (manual) 5 (0-12); Myelocytes % 1
[2021-10-12] MEDS: PANTOPRAZOLE 40mg/50ML NS AE 50 ML IV SCH (02:05)
[2021-10-12] MEDS: SODIUM BICARBONATE 50ML VIAL 150 ML in D5W 5% 1,000 ML IV SCH ×2 (02:35→11:11)
[2021-10-12] MEDS: FUROSEMIDE IV SCH ×3 (02:45→17:56)
[2021-10-12] MEDS: D5W 5% IV SCH ×3 (02:45→17:56)
[2021-10-12 04:07] LABS: Red Cell Distribution Width 15.4 % (11.8-14.3)
[2021-10-12 04:11] LABS: Hematocrit 29.1 % (41.0-53.0); Hemoglobin 9.4 g/dL (13.5-17.5); Mean Corpuscular Hemoglobin 29.4 pg (28.0-32.0); Mean Corpuscular Hgb Conc. 32.2 g/dL (32.0-36.0); Mean Corpuscular Volume 91.3 fL (80.0-100.0); Red Blood Cells 3.19 10^6/uL (4.5-5.90); White Blood Cell 25.9 10^3/uL (4.4-10.8)
[2021-10-12 04:16] LABS: Basophils % (manual) 0 (0.0-2.0); Blast Cells 0; Eosinophils % (manual) 0 (0-7); Metamyelocytes % 0; Promyelocytes % 0; Reactive Lymphocytes 0
[2021-10-12] MEDS: AMIODARONE 450mg/250ml AE 250 ML IV SCH ×2 (04:25→17:55)
[2021-10-12] MEDS: fentaNYL Drip 2500mCg/250mlNS 250 ML IV SCH (04:26)
[2021-10-12 04:28] LABS: INR 2.05 (0.9-1.15)
[2021-10-12 04:28] LABS: Albumin 2.5 g/dL (3.4-5.0); BUN/Creatinine Ratio 17.4; Calcium 6.9 mg/dL (8.5-10.1)
[2021-10-12 04:34] LABS: Lactic Acid w/Reflex 6.9 mmol/L (0.4-2.0)
[2021-10-12 04:37] LABS: Bilirubin, Total 5.6 mg/dL (0.2-1.0); Total Protein 4.7 g/dL (6.4-8.2)
[2021-10-12] MEDS: MIDAZOLAM DRIP 50 mg/50mL 50 ML IV SCH (05:25)
[2021-10-12 05:29] LABS: Band Neutrophils % (manual) 26; Lymphocytes % (manual) 2 (10.0-50.0); Monocytes % (manual) 1 (0-12); Myelocytes % 3
[2021-10-12] MEDS: HYDROCORTISONE SOD SUCC 100 MG/2ML INJ VIAL IV SCH ×3 (05:49→22:03)
[2021-10-12] MEDS: InsuLIN REG 1unit/0.01ml Soln (100units/ml) SC SCH ×3 (05:51→17:49)
[2021-10-12] MEDS: ACCU-CHEK COMFORT CURVE STRIP VI SCH ×3 (05:54→17:40)
[2021-10-12] MEDS: NOREPINEPHRINE BITARTRATE 32 MG in SODIUM CHL 0.9% 218 ML IV SCH (06:17)
[2021-10-12] MEDS ORDERED: phytonadione 10 MG in SODIUM CHL 0.9% 50 ML IV ONE (09:15)
[2021-10-12] MEDS ORDERED: FLUCONAZOLE 200MG/100ML 100 ML IV SCH ×2 (10:00)
[2021-10-12] MEDS: PANTOPRAZOLE 40 MG/10 ML VIAL INJ IV SCH ×2 (10:15→22:03)
[2021-10-12] MEDS: MEROPENEM 500MG IVPB 50 ML IV SCH ×2 (10:15→22:03)
[2021-10-12] MEDS: PHENYLEPHRINE INJ 80 MG in SODIUM CHL 0.9% 242 ML IV SCH (11:12)
[2021-10-12] MEDS: FLUCONAZOLE 200MG/100ML 100 ML IV SCH (11:50)
[2021-10-12] MEDS ORDERED: SODIUM CHLORIDE 0.9% 1,000 ML IV ONE (21:30)
[2021-10-13] VITALS (84 sets, daily range): BP systolic 61–167; BP diastolic 40–69
[2021-10-13] MEDS: ACCU-CHEK COMFORT CURVE STRIP VI SCH ×4 (00:17→17:58)
[2021-10-13 04:48] LABS: Red Cell Distribution Width 15.3 % (11.8-14.3)
[2021-10-13 05:00] LABS: INR 1.83 (0.9-1.15); Partial Thromboplastin Time 36.2 sec (23.6-33.0)
[2021-10-13 05:08] LABS: Basophils % (manual) 0 (0.0-2.0); Blast Cells 0; Eosinophils % (manual) 0 (0-7); Hemoglobin 9.6 g/dL (13.5-17.5); Mean Corpuscular Hemoglobin 30.8 pg (28.0-32.0); Mean Corpuscular Hgb Conc. 34.4 g/dL (32.0-36.0); Mean Corpuscular Volume 89.5 fL (80.0-100.0); Metamyelocytes % 0; Myelocytes % 0; Promyelocytes % 0; Reactive Lymphocytes 0; Red Blood Cells 3.13 10^6/uL (4.5-5.90); White Blood Cell 27.7 10^3/uL (4.4-10.8)
[2021-10-13 05:10] LABS: Albumin 2.3 g/dL (3.4-5.0); BUN/Creatinine Ratio 17.8; Calcium 6.6 mg/dL (8.5-10.1)
[2021-10-13 05:14] LABS: Lactic Acid w/Reflex 4.4 mmol/L (0.4-2.0)
[2021-10-13 05:19] LABS: Bilirubin, Total 9.4 mg/dL (0.2-1.0); Total Protein 4.8 g/dL (6.4-8.2)
[2021-10-13 05:35] LABS: Potassium 5.4 mmol/L (3.5-5.1)
[2021-10-13] MEDS: InsuLIN REG 1unit/0.01ml Soln (100units/ml) SC SCH ×4 (06:00→17:58)
[2021-10-13 06:15] LABS: Band Neutrophils % (manual) 30; Lymphocytes % (manual) 2 (10.0-50.0); Monocytes % (manual) 2 (0-12)
[2021-10-13] MEDS: HYDROCORTISONE SOD SUCC 100 MG/2ML INJ VIAL IV SCH ×3 (06:15→22:07)
[2021-10-13] MEDS: PHENYLEPHRINE INJ 80 MG in SODIUM CHL 0.9% 242 ML IV SCH ×2 (08:47→16:59)
[2021-10-13] MEDS: AMIODARONE 450mg/250ml AE 250 ML IV SCH (08:47)
[2021-10-13] MEDS: MEROPENEM 500MG IVPB 50 ML IV SCH ×2 (09:24→22:07)
[2021-10-13] MEDS: PANTOPRAZOLE 40 MG/10 ML VIAL INJ IV SCH ×2 (09:24→22:07)
[2021-10-13] MEDS ORDERED: VASOPRESSIN 50 UNITS in D5W 5% 247.5 ML IV PRN (10:45)
[2021-10-13] MEDS ORDERED: EPINEPHrine HCL 250 ML IV PRN (10:45)
[2021-10-13] MEDS ORDERED: fentaNYL Drip 2500mCg/250mlNS 250 ML IV PRN (11:00)
[2021-10-13] MEDS ORDERED: PROPOFOL 100 ML IV PRN (11:00)
[2021-10-13] MEDS: FLUCONAZOLE 200MG/100ML 100 ML IV SCH (12:47)
[2021-10-13] MEDS: NOREPINEPHRINE BITARTRATE 32 MG in SODIUM CHL 0.9% 218 ML IV SCH (15:20)
[2021-10-13] MEDS ORDERED: CALCIUM GLUC 1,000mg/50ml-NS 50 ML IV ONE (21:30)
[2021-10-13] MEDS ORDERED: PHENYLEPHRINE IV 250 ML IV ONE (23:42)
[2021-10-13] MEDS ORDERED: PHENYLEPHRINE HCL 10 MG/ML VL ONE (23:43)
[2021-10-14] MEDS ORDERED: EPINEPHrine HCL 1 MG/10 ML SYRG IV ONE (03:21)
== END 2021-10-13 23:56 | DRG 871 ==
LOC: ER 23:23 → EDBD 23:23 → UNDOADMIN 09-21 05:42 → TELE 09-21 05:42 → ICU CENTRL 09-21 05:46 → TELE-EAST 09-21 17:58 → TELE 09-21 18:03 → TELE-EAST 09-21 18:03 → TELE-E-ADS 09-25 03:07 → TELE-EAST 09-25 03:07 → TELE-E-ADS 09-25 03:35 → ICU WEST 10-06 19:51 → UNDODISIN 10-14 03:22
PROVIDERS: ADMIT Nurse Practitioner Family; ATTEND Nurse Practitioner Family
PROC: XW033E5 Introduction of Remdesivir Anti-infective into Peripheral Vein, Percutaneous Approach, New Technology Group 5 (ICD-10-PCS; 2021-09-21)
PROC: 02HV33Z Insertion of Infusion Device into Superior Vena Cava, Percutaneous Approach (ICD-10-PCS; principal; 2021-09-26)
PROC: B548ZZA Ultrasonography of Superior Vena Cava, Guidance (ICD-10-PCS; 2021-09-26)
PROC: 05HC33Z Insertion of Infusion Device into Left Basilic Vein, Percutaneous Approach (ICD-10-PCS; 2021-09-27)
PROC: B54NZZA Ultrasonography of Left Upper Extremity Veins, Guidance (ICD-10-PCS; 2021-09-27)
PROC: 30233K1 Transfusion of Nonautologous Frozen Plasma into Peripheral Vein, Percutaneous Approach (ICD-10-PCS; 2021-10-06)
PROC: 5A0935A Assistance with Respiratory Ventilation, Less than 24 Consecutive Hours, High Flow/Velocity Cannula (ICD-10-PCS; 2021-10-08)
PROC: 03HY32Z Insertion of Monitoring Device into Upper Artery, Percutaneous Approach (ICD-10-PCS; 2021-10-09)
PROC: 4A133B1 Monitoring of Arterial Pressure, Peripheral, Percutaneous Approach (ICD-10-PCS; 2021-10-09)
PROC: 4A133J1 Monitoring of Arterial Pulse, Peripheral, Percutaneous Approach (ICD-10-PCS; 2021-10-09)
PROC: 5A1945Z Respiratory Ventilation, 24-96 Consecutive Hours (ICD-10-PCS; 2021-10-09)
PROC: 0BH17EZ Insertion of Endotracheal Airway into Trachea, Via Natural or Artificial Opening (ICD-10-PCS; 2021-10-09)
PROC: 30233N1 Transfusion of Nonautologous Red Blood Cells into Peripheral Vein, Percutaneous Approach (ICD-10-PCS; 2021-10-09)
PROC: 30233R1 Transfusion of Nonautologous Platelets into Peripheral Vein, Percutaneous Approach (ICD-10-PCS; 2021-10-11)
PROC: 5A12012 Performance of Cardiac Output, Single, Manual (ICD-10-PCS; 2021-10-13)
PROC: 5A09357 Assistance with Respiratory Ventilation, Less than 24 Consecutive Hours, Continuous Positive Airway Pressure (ICD-10-PCS; 2021-10-13)
DX: A41.89 Other specified sepsis (principal); J96.01 Acute respiratory failure with hypoxia; R65.21 Severe sepsis with septic shock; J12.82 Pneumonia due to coronavirus disease 2019; U07.1 COVID-19; N17.0 Acute kidney failure with tubular necrosis; I21.A1 Myocardial infarction type 2; J96.21 Acute and chronic respiratory failure with hypoxia; K72.00 Acute and subacute hepatic failure without coma; I50.43 Acute on chronic combined systolic (congestive) and diastolic (congestive) heart failure; G93.41 Metabolic encephalopathy; D65 Disseminated intravascular coagulation [defibrination syndrome]; J44.1 Chronic obstructive pulmonary disease with (acute) exacerbation; N18.4 Chronic kidney disease, stage 4 (severe); I13.0 Hypertensive heart and chronic kidney disease with heart failure and stage 1 through stage 4 chronic kidney disease, or unspecified chronic kidney disease; I47.2 Ventricular tachycardia; J44.0 Chronic obstructive pulmonary disease with (acute) lower respiratory infection; J98.11 Atelectasis; D68.32 Hemorrhagic disorder due to extrinsic circulating anticoagulants; K92.2 Gastrointestinal hemorrhage, unspecified; B37.49 Other urogenital candidiasis; E86.0 Dehydration; I48.0 Paroxysmal atrial fibrillation; D64.9 Anemia, unspecified; E11.22 Type 2 diabetes mellitus with diabetic chronic kidney disease; E66.9 Obesity, unspecified; D89.839 Cytokine release syndrome, grade unspecified; I46.9 Cardiac arrest, cause unspecified; E88.09 Other disorders of plasma-protein metabolism, not elsewhere classified; E78.00 Pure hypercholesterolemia, unspecified; E78.5 Hyperlipidemia, unspecified; E83.39 Other disorders of phosphorus metabolism; E83.51 Hypocalcemia; E87.5 Hyperkalemia; F41.9 Anxiety disorder, unspecified; H91.90 Unspecified hearing loss, unspecified ear; I45.4 Nonspecific intraventricular block; E04.1 Nontoxic single thyroid nodule; T45.515A Adverse effect of anticoagulants, initial encounter; R79.89 Other specified abnormal findings of blood chemistry; K76.0 Fatty (change of) liver, not elsewhere classified; K80.20 Calculus of gallbladder without cholecystitis without obstruction; R57.1 Hypovolemic shock; Z68.32 Body mass index [BMI] 32.0-32.9, adult; Z79.01 Long term (current) use of anticoagulants; Z82.49 Family history of ischemic heart disease and other diseases of the circulatory system; Z83.3 Family history of diabetes mellitus; Z87.891 Personal history of nicotine dependence; Y92.89 Other specified places as the place of occurrence of the external cause; Z79.84 Long term (current) use of oral hypoglycemic drugs
CPT/HCPCS: 36415; 36600; 71045; 71250; 74176; 76705; 76775; 80048; 80053; 80061; 80076; 80162; 80202; 81001; 82306; 82570; 82728; 82805; 82962; 83036; 83605; 83615; 83735; 83880; 83970; 84100; 84132; 84156; 84300; 84484; 85007; 85014; 85018; 85025; 85027; 85379; 85384; 85610; 85730; 86141; 86850; 86900; 86901; 86920; 87040; 87070; 87077; 87081; 87086; 87088; 87186; 87205; 87426; 92950; 93005; 93306; 93970; 94002; 94003; 94640; 94660; 95819; 96365; 96367; 96368; 96375; 97110; 97116; 97530; C9113; G0378; J0171; J0696; J1100; J1450; J1815; J1956; J2185; J2250; J2405; J2543; J2704; J3430; J3490; J7060; P9047